=== PATIENT | female | born 1990 | race Caucasian/White ===

== ENCOUNTER → 2016-04-23 | Outpatient (CLI) | payer OTHER ==
[~2016-04-23] MED LIST: BCPILLS PO; BIOT1CAP8 PO; COEN100C7 PO; HYDR-5688 PO; MISCCAP80 PO; PRENTAB26 PO; VITAMIN D3 PO
[2016-04-23 14:10] LABS: PREG INTERNAL NEGATIVE QC NEG CLEAR BACKGROUND; PREG INTERNAL POSITIVE QC POS CONTROL LINE
[2016-04-25 03:42] LABS: CHLAMYDIA TRACH RNA*** NOT DETECTED (NOT DETECTED); GC (NEIS GONORRHOEAE)RNA** NOT DETECTED (NOT DETECTED)
== END | disposition home or self-care (01) ==
LOC: C.LABSPEC 17:51
PROVIDERS: ATTEND Obstetrics & Gynecology
DX: Z01.419 Encounter for gynecological examination (general) (routine) without abnormal findings (principal); R10.2 Pelvic and perineal pain

== ENCOUNTER → 2016-06-12 | Outpatient (CLI) | payer OTHER ==
[~2016-06-12] MED LIST changes: -HYDR-5688 PO
== END | disposition home or self-care (01) ==
LOC: C.LABPVFM 07:43
PROVIDERS: ATTEND Family Medicine
DX: E03.9 Hypothyroidism, unspecified (principal)

== ENCOUNTER → 2016-08-29 | Outpatient (CLI) | payer OTHER | END | disposition home or self-care (01) | LOC: C.LAB1850 13:43 | PROVIDERS: ATTEND Family Medicine | DX: E03.9 Hypothyroidism, unspecified (principal) ==

== ENCOUNTER → 2016-12-05 | Outpatient (CLI) | payer OTHER ==
[2016-12-05 15:50] LABS: THYROID STIMULATING HORMONE 0.906 uIu/ml (0.300-4.500)
== END | disposition home or self-care (01) ==
LOC: C.LAB1850 14:01
PROVIDERS: ATTEND Nurse Practitioner Psychiatric/Mental Health
DX: F33.1 Major depressive disorder, recurrent, moderate (principal)

== ENCOUNTER 2023-11-19 16:30 | Inpatient (IN) ==
[2023-11-19] MEDS: LACTATED RINGER'S 1,000 ML IV PRN (17:25)
[2023-11-19] MEDS: LABETALOL HCL 100 MG TAB PO SCH (17:27)
[2023-11-19] MEDS: LABETALOL HCL 100 MG TAB ONE (17:29)
[2023-11-19 17:35] LABS: Basophils # (auto) 0.06 K/uL (0.00-0.20); Basophils % (auto) 0.3 %; Eosinophils # (auto) 0.02 K/uL (0.00-0.50); Eosinophils % (auto) 0.1 %; Hemoglobin 12.8 g/dl (12.0-16.0); Immature Granulocytes # (auto) 0.12 K/uL (0.01-0.20); Immature Granulocytes % (auto) 0.6 %; Lymphocytes # (auto) 2.19 K/uL (1.20-3.40); Lymphocytes % (auto) 11.4 %; Mean Corpuscular Hemoglobin 31.4 pg (25.0-34.0); Mean Corpuscular Hgb Conc 34.6 g/dL (32.0-36.0); Mean Corpuscular Volume 90.7 fL (80.0-100.0); Mean Platelet Volume 10.6 fL (9.4-12.4); Monocytes # (auto) 1.57 K/uL (0.11-0.59); Monocytes % (auto) 8.2 %; Neutrophils % (auto) 79.4 %; Platelet Count 383 K/uL (130-400); RDW Coefficient of Variation 14.6 % (11.5-14.5); RDW Standard Deviation 47.2 fL (36.4-46.3); Red Blood Count 4.08 M/uL (4.20-5.40); White Blood Count 19.26 K/ul (4.8-10.8)
[2023-11-19 17:59] LABS: Alanine Aminotransferase 7 U/L (7-52); Albumin Globulin Ratio 0.9 (0.9-2); Albumin Level 3.3 gm/dl (3.4-5.0); Alkaline Phosphatase 188 U/L (34-104); Anion Gap 8 (3-11); Aspartate Aminotransferase 15 U/L (13-39); BUN Creatinine Ratio 19.7 (10-20); Bilirubin,Total 0.2 mg/dl (0.2-1.0); Blood Urea Nitrogen 14 mg/dl (6-23); Calcium 9.4 mg/dl (8.6-10.3); Carbon Dioxide 19 mmol/L (21-32); Chloride 107 mmol/L (98-107); Est GFR (African American) 130.6 ml/min; Est GFR (Non-African American) 112.7 ml/min; Globulin 3.7 gm/dl (2.5-4.0); Glucose 134 mg/dl (70-99(Fasting)); Potassium 4.2 mmol/L (3.5-5.1); Sodium 134 mmol/L (136-145)
[2023-11-19 18:06] LABS: Creatinine Urine Random 146.2 mg/dl; Protein Creatinine Ratio Urine 0.2 (0-0.2); Total Protein Urine Random 22.2 mg/dl (0-11.9)
[2023-11-19] MEDS ORDERED: OXYTOCIN 30 UNITS/NSS 30 UNITS/500 ML BAG IV PRN (18:36)
[2023-11-19] MEDS ORDERED: LIDOCAINE 1% LOCAL 20 ML VIAL INFIL PRN (18:36)
[2023-11-19 18:41] LABS: Amphetamines+Metham, Urine Pos (Neg); Barbiturates, Urine Neg (Neg); Benzodiazepine, Urine Neg (Neg); Cocaine, Urine Neg (Neg); Fentanyl, Urine Neg (Neg); MDMA (Ecstacy), Urine Neg (Neg); Marijuana, Urine Pos (Neg); Methadone, Urine Neg (Neg); Opiate, Urine Neg (Neg); Phencyclidine, Urine Neg (Neg)
--- NOTE | 2023-11-19 18:44 | Obstetrical Progress Note ---
Date of Service November 19, 2023 Assessment & Plan (1) PROM (premature rupture of membranes): Plan: 33yo at 40+weeks Poor PNC Hx of asthma Hx of gestational HTN- On labetalol last antihypertensive taken 3 days ago Suspected ROM at 05;00 Hrs FHr 'CAT1 Ctx 2-3mins VE; /-3 + meconium GBs culx done today Plan Admit start Pitocin augmentation Staring antibx for GBS Results & Data Vital Signs (Past 12 Hours) Vital Signs Temp Pulse Resp BP 11/19/23 18:09 100 H 142/94 H 11/19/23 17:38 36.8 C 98 H 22 151/103 H 11/19/23 17:34 98 H 151/103 H 11/19/23 17:24 100 H 151/100 H 11/19/23 17:13 36.8 C 103 H 22 138/91 11/19/23 17:03 101 H 146/108 H 11/19/23 16:53 105 H 140/102 H
[2023-11-19 19:31] LABS: Hematocrit (blood only) 37.8 % (37.0-47.0); Hemoglobin 12.5 g/dl (12.0-16.0); Mean Corpuscular Hemoglobin 30.8 pg (25.0-34.0); Mean Corpuscular Hgb Conc 33.1 g/dL (32.0-36.0); Mean Corpuscular Volume 93.1 fL (80.0-100.0); Mean Platelet Volume 10.6 fL (9.4-12.4); Platelet Count 377 K/uL (130-400); RDW Coefficient of Variation 14.8 % (11.5-14.5); RDW Standard Deviation 48.9 fL (36.4-46.3); Red Blood Count 4.06 M/uL (4.20-5.40); White Blood Count 18.54 K/ul (4.8-10.8)
[2023-11-19] MEDS: PENICILLIN GK 6 MU in DEXTROSE 5% 250 ML IV ONE (19:53)
[2023-11-19] MEDS ORDERED: diphenhydrAMINE 50 MG/ML VIAL IV PRN (20:15)
[2023-11-19] MEDS ORDERED: NALOXONE HCL 1 MG in SODIUM CHLORIDE 0.9% 1,000 ML IV PRN (20:15)
[2023-11-19] MEDS ORDERED: NALOXONE HCL 0.4 MG/1 ML VIAL/CARP IV PRN (20:15)
[2023-11-19] MEDS ORDERED: SODIUM CHLORIDE 0.9% PF INJ 10 ML VIAL EPI PRN (20:15)
[2023-11-19] MEDS ORDERED: NALBUPHINE HCL INJ 10 MG/ML AMP IV PRN (20:15)
[2023-11-19] MEDS ORDERED: fentaNYL citrate PF 100 MCG/2 ML VIAL EPI PRN (20:15)
[2023-11-19] MEDS ORDERED: LIDOCAINE 2% MPF LOCAL 5 ML VIAL EPI PRN (20:15)
[2023-11-19] MEDS ORDERED: BUPIVACAINE 0.25% PF 30 ML VIAL EPI PRN (20:15)
[2023-11-19] MEDS ORDERED: ROPIVACAINE 0.5% PF 5 MG/ML 20 ML VIAL EPI PRN (20:15)
[2023-11-19] MEDS ORDERED: ePHEDrine sulfate 50 MG/ML AMP IV PRN (20:15)
--- NOTE | 2023-11-19 20:15 | Anesthesiology Consultation ---
Date of Service November 19, 2023 Assessment & Plan (1) Encounter for pre-operative examination: Chart Review Chart Review: Patient NOT seen in Pre Admission Testing and Acceptable Risk for Labor Epidural Consults Requested none History Height/Weight Height: 5 ft 6 in Weight: 124.861 kg Allergies Allergy/AdvReac Type Severity Reaction Status Date / Time adhesive Allergy Unknown RASH, BUMPS Verified 09/23/21 03:08 latex Allergy Unknown RASH AND Verified 09/23/21 03:08 SWELLING AT AREA Influenza Virus Vaccines Allergy Nausea Verified 11/12/23 00:12 Medications Home Medications Medication Instructions Recorded Confirmed Last Taken fluoxetine 40 mg capsule 20 mg PO DAILY 03/14/19 11/19/23 11/18/23 07:00 dextroamphetamine-amphetamine ER See Rx Instructions .Route .COMPLEX 11/03/20 11/19/23 11/19/23 07:00 20 mg 24hr capsule,extend release galcanezumab-gnlm 120 mg/mL 0 mg subcut DIRECTED 09/23/21 11/19/23 08/30/23 07:00 subcutaneous pen injector (Emgality Pen) Medical Marijuana Card See Rx Instructions .Route .COMPLEX 04/12/23 11/12/23 11/19/23 08:00 1 cap PO QAM 04/12/23 11/19/23 11/13/23 08:00 albuterol sulfate 90 mcg/actuation 90 mcg inhalation UD PRN exercise 04/12/23 11/19/23 11/19/23 06:30 aerosol inhaler induced asthma labetalol 100 mg tablet 100 mg PO BID 11/19/23 11/19/23 11/17/23 22:30 Active Medications Generic Name Dose Route Start Last Admin Trade Name Freq PRN Reason Stop Dose Admin Lactated Ringer's 1,000 mls @ 125 mls/hr 11/19/23 17:09 11/19/23 19:58 Lr IV 12/19/23 17:08 125 mls/hr .Q8H PRN Infusion L&D Protocol Protocol Past Medical History Medical History Narcolepsy Anxiety Depression Mononucleosis Past Family History Family History Other Diabetes Stroke Past Surgical History Surgical History [place] teeth extracted H/O removal of cyst Social History Smoking Status: Current every day smoker Smoking cigarettes per day: 4 per day Hx Alcohol Use: No Hx Substance Use: No substance use type: marijuana Last Used Substance: Hours (ago) Last Used Substance Other:: 0800 Physical Exam Vital Signs Last Vital Signs Temp 98.2 F 11/19/23 17:38 Pulse 94 H 11/19/23 20:10 Resp 22 11/19/23 17:38 BP 142/95 H 11/19/23 20:10 Pulse Ox 97 11/19/23 20:09 Testing Laboratory Results 11/19/23 18:59 11/19/23 17:21
[2023-11-19] MEDS: fentANYL 2 MCG/ML BUPIVacaine 0.125%-NSS 100ML BAG ONE (20:44)
[2023-11-19] MEDS: BUPIVACAINE 0.25% PF 30 ML VIAL ONE (20:44)
[2023-11-19] MEDS: LIDOCAINE 2%/EPINEPHRINE 1:200,000 20 ML PF ONE (20:44)
[2023-11-19] MEDS: OXYTOCIN 30 UNITS/NSS 30 UNITS/500 ML BAG IV PRN (21:14)
[2023-11-19] MEDS: ePHEDrine sulfate 50 MG/ML AMP ONE (21:57)
[2023-11-19] MEDS: fentaNYL citrate PF 100 MCG/2 ML VIAL ONE (21:57)
[2023-11-19] MEDS: SODIUM CHLORIDE 0.9% PF INJ 10 ML VIAL EPI STA (21:58)
[2023-11-19] MEDS: BUPIVACAINE 0.25% PF 30 ML VIAL EPI STA (21:58)
[2023-11-19] MEDS: fentaNYL citrate PF 100 MCG/2 ML VIAL EPI STA (21:58)
[2023-11-19] MEDS: SODIUM CHLORIDE 0.9% PF INJ 10 ML VIAL ONE (21:58)
[2023-11-19] MEDS: LIDOCAINE 2%/EPINEPHRINE 1:200,000 20 ML PF EPI STA (21:58)
[2023-11-19] MEDS: PENICILLIN GK 3 MU in DEXTROSE 5% 100 ML IV PRN (23:36)
--- NOTE | 2023-11-19 23:53 | Obstetrical Progress Note ---
Date of Service November 19, 2023 Assessment & Plan (1) Obesity: Plan: Pt doing well Poor tracing due to elevated BMI IUPC and scalp placed Pit 4Mu FHR; CAT1 Ctx 2-4mins + meconium Admission and Anticipated Discharge Date Admission Date: November 19, 2023 Results & Data Vital Signs (Past 12 Hours) Vital Signs Temp Pulse Resp BP Pulse Ox 11/19/23 23:46 85 99 11/19/23 23:41 91 H 144/85 H 99 11/19/23 23:36 96 H 99 11/19/23 23:31 97 H 98 11/19/23 23:26 96 11/19/23 23:26 88 11/19/23 23:26 76 142/75 H 11/19/23 23:21 84 97 11/19/23 23:16 89 99 11/19/23 23:11 87 143/76 H 97 11/19/23 23:06 87 99 11/19/23 23:01 86 98 11/19/23 23:00 36.8 C 11/19/23 22:56 98 11/19/23 22:56 87 11/19/23 22:56 95 H 154/97 H 11/19/23 22:53 100 H 94 11/19/23 22:51 99 H 98 11/19/23 22:46 108 H 98 11/19/23 22:41 98 H 130/72 97 11/19/23 22:36 106 H 98 11/19/23 22:31 106 H 99 11/19/23 22:26 100 11/19/23 22:26 99 H 11/19/23 22:26 94 H 146/89 H 11/19/23 22:21 101 H 100 11/19/23 22:16 91 H 100 11/19/23 22:11 97 H 128/90 99 11/19/23 22:06 101 H 99 11/19/23 22:01 99 H 100 11/19/23 22:00 18 11/19/23 22:00 18 11/19/23 21:57 99 H 124/88 11/19/23 21:56 100 H 99 11/19/23 21:51 107 H 99 11/19/23 21:46 112 H 100 11/19/23 21:41 101 H 143/101 H 98 11/19/23 21:36 102 H 99 11/19/23 21:31 96 H 99 11/19/23 21:27 109 H 142/99 H 11/19/23 21:26 105 H 100 11/19/23 21:21 93 H 99 11/19/23 21:16 99 H 100 11/19/23 21:11 102 H 99 11/19/23 21:09 94 H 151/70 H 11/19/23 21:06 96 H 100 11/19/23 21:05 100 H 124/80 11/19/23 21:03 96 H 135/81 11/19/23 21:01 96 H 122/63 100 11/19/23 21:00 18 11/19/23 21:00 36.8 C 18 11/19/23 20:59 93 H 130/72 11/19/23 20:57 106 H 132/85 11/19/23 20:56 95 H 99 11/19/23 20:55 109 H 123/71 11/19/23 20:53 98 H 129/71 11/19/23 20:51 100 11/19/23 20:51 101 H 11/19/23 20:51 104 H 117/80 11/19/23 20:49 94 H 120/79 11/19/23 20:47 112 H 127/80 11/19/23 20:46 105 H 99 11/19/23 20:45 100 H 123/74 11/19/23 20:43 101 H 119/71 11/19/23 20:41 99 H 130/82 98 11/19/23 20:39 106 H 126/72 11/19/23 20:36 111 H 100 11/19/23 20:31 94 H 100 11/19/23 20:26 99 H 99 11/19/23 20:21 91 H 99 11/19/23 20:14 86 99 11/19/23 20:10 94 H 142/95 H 11/19/23 20:09 83 97 11/19/23 20:00 88 161/81 H 11/19/23 19:57 86 182/90 H 11/19/23 19:30 37.0 C 11/19/23 19:08 93 H 142/88 H 11/19/23 18:40 97 H 150/86 H 11/19/23 18:09 100 H 142/94 H 11/19/23 17:38 36.8 C 98 H 22 151/103 H 11/19/23 17:34 98 H 151/103 H 11/19/23 17:24 100 H 151/100 H 11/19/23 17:13 36.8 C 103 H 22 138/91 11/19/23 17:03 101 H 146/108 H 11/19/23 16:53 105 H 140/102 H
[2023-11-20] MEDS: fentANYL 2 MCG/ML BUPIVacaine 0.125%-NSS 100ML BAG EPI PRN (05:03)
--- OUTSIDE RECORDS SUMMARY | 2023-11-20 09:09 | External Medical Summary | Summary of Care ---
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 Name Role Phone Marcella Ames DO Primary Care Provider Reason for Visit * Reason Onset Date Comments Med Request 11/13/2023 Encounter Details Date Type Department Care Team (Late st Contact Info) Description 11/13/2023 Telephone Sleep Disorders [facility] [address] [place] [address] Services, Scheduling [address] [place] [address] Med Request Allergies Active Allergy Reactions Criticality Noted Date Comments Adhesive Tape Rash 03/14/2019 Influenza Virus Vaccine Fever 07/21/2020 Fever vomiting Dizzy Latex Edema Other,Rash Medium 05/20/2015 Powder Edema Other,Rash Medium 06/19/2017 The powder inside gloves documented as of this encounter (statuses as of 11/13/2023) Medications Medication Sig Dispensed Refills Start Date End Date Status Clindamycin Phosphate 1 % External GelIndications:Furun culosis,Folliculitis APPLY TWO TIMES DAILY TO NEW AND RESOLVING SPOTS IN UNDERARMS/ABDOMEN /GROIN AND ONCE DAILY TO PRONE AREAS INSTRUCTED 180 g 1 08/15/2021 Active Ventolin HFA 108 (90 Base) MCG/ACT Inhalation Aerosol Solution Inhale 2 Puffs by mouth every 4 hours as needed for Wheezing. 18 g 2 08/27/2022 Active 28-0.8 MG Oral Tablet Take by mouth. Active Emgality 120 MG/ML Subcutaneous Solution Auto-injector Inject 1 mL under the skin Every Month. 1 mL 3 05/06/2023 Active Aspirin 81 MG Oral Tablet ChewableIndications: Obesity during in first trimester,Chronic hypertension during Take 1 Tablet by mouth in the morning. 100 Tablet 3 06/04/2023 Active FLUoxetine HCl 20 MG Oral Capsule (PROzac)Indications: Depression complicating , antepartum Take 1 Capsule by mouth in the morning. 30 Capsule 2 06/13/2023 Active Labetalol HCl 100 MG Oral Tablet (Normodyne) Take 1 Tablet by mouth in the morning and 1 Tablet before bedtime. 60 Tablet 1 07/16/2023 Active Amphetamine-Dextroam phet ER 20 MG Oral Capsule Extended Release 24 Hour (Adderall XR) Take 2 Capsules by mouth daily first thing in the morning AND 1 Capsule daily at noon. Total 3 capsules per day. 90 Capsule 11/11/2023 Active documented as of this encounter (statuses as of 11/13/2023) Active Problems Problem Noted Date Diagnosed Date Chronic hypertension during 05/24/2023 Overview: Diagnosed with chronic hypertension in Reports she was started on Labetalol 100mg/day as of 04/12/2023 - after being sent to [facility] due to elevated BP, reports BP readings of 153/104 and 163/98. Has home BP cuff -Reviewed BP parameters, preeclampsia s/s, and when to call. BP Readings from Last 8 Encounters: 05/24/23 120/74 05/06/23 124/90 04/15/23 120/82 04/08/23 132/84 11/15/22 148/96 11/01/22 102/70 10/19/22 120/84 08/10/22 120/80 Baseline Preeclampsia Labs Lab Results Component Value Date/Time PLATELET AUTO - [facility] 355 04/08/2023 12:34 PM CREATININE - [facility] 0.8 04/08/2023 12:34 PM AST - [facility] 15 04/08/2023 12:34 PM ALT - [facility] 19 04/08/2023 12:34 PM PROTEIN/ CREATININE RATIO, URINE - [facility] 58 04/08/2023 01:34 PM 24 hour urine completed. Recommend bASA therapy (aspirin 81mg/day) starting now. Last Assessment & Plan: BP Readings from Last 5 Encounters: 08/01/23 110/64 07/29/23 128/82 06/04/23 110/80 05/24/23 120/74 05/06/23 124/90 HTN in , chronic 05/10/2023 , supervision, high-risk, first trimest er 04/11/2023 Last Assessment & Plan: Offered aneuploidy screening with NIPT. Benefits and limitations of testing reviewed; testing is not diagnostic and is limited in scope of conditions tested. NIPT is always covered by Medicaid plans. Charlette was told to call her insurance, but this is not needed as she has GHP family. NIPT and msAFP ordered today. Obesity during in first trimester 03/25 Overview: Pre-gravid BMI 44.41 (#275, 5'6") Patient plans to complete early 1 hour GCT at next OB appointment on 05/06. Baseline Preeclampsia Labs Lab Results Component Value Date/Time PLATELET AUTO - [facility] 355 04/08/2023 12:34 PM CREATININE - [facility] 0.8 04/08/2023 12:34 PM AST - [facility] 15 04/08/2023 12:34 PM ALT - [facility] 19 04/08/2023 12:34 PM PROTEIN/ CREATININE RATIO, URINE - [facility] 58 04/08/2023 01:34 PM Last Assessment & Plan: Abnormal 1'GTT with normal 3'GTT reviewed. Hypothyroid in , antepartum, first trim xiao 04/11/2023 Overview: Patient not currently taking medication for hypothyroidism. She states that she has levothyroxine at home from a previous prescription, but that she forgets to take it and has not taken it in some time. Most recent TSH was WNL on Saturday 04/08. Recommend ongoing follow-up with OB/PCP for management. TSH Results: Lab Results Component Value Date/Time TSH - [facility] 2.42 04/08/2023 12:34 PM TSH - [facility] 3.56 06/09/2021 11:54 AM TSH - [facility] 0.98 11/03/2020 12:48 PM TSH - [facility] 2.34 10/09/2019 08:45 AM TSH - [facility] 1.72 12/25/2018 10:31 AM TSH - [facility] 0.97 04/01/2018 04:21 PM Last Assessment & Plan: TSH Results: Lab Results Component Value Date/Time TSH - [facility] 1.61 06/18/2023 03:11 PM TSH - [facility] 2.42 04/08/2023 12:34 PM TSH - [facility] 3.56 06/09/2021 11:54 AM TSH - [facility] 2.34 10/09/2019 08:45 AM TSH - [facility] 1.72 12/25/2018 10:31 AM TSH - [facility] 0.97 04/01/2018 04:21 PM Asthma affecting in first trimester Overview: Asthma symptoms triggered by exercise and cold weather. Stable thus far in ; using albuterol inhaler regularly but not more than twice per week. She is aware to notify OB and/or PCP with any change in symptoms. Last Assessment & Plan: CONSIDERATIONS: Asthma symptoms may improve, worsen or remain unchanged in severity in . Asthma is generally managed the same in as in the non- patient, as asthma-control medications are considered safe in . If asthma is well-controlled with medications prior to , it is recommended to continue the same medication regimen during . A patient should seek medical care immediately if an asthma flare does not respond to therapy. Mild and well-controlled moderate asthma can be associated with excellent maternal and outcomes. Severe and poorly controlled asthma may be associated with increased morbidity and mortality. Asthma management includes monitoring of lung function with pulmonary function testing (when indicated), avoidance of triggers (such as tobacco smoke, mold, dust mite exposure, animal dander and cockroaches), and a step-care approach to pharmacologic therapy based on the severity of the patient's asthma. RECOMMENDATIONS: Inhaled corticosteroids are the mainstay of therapy for all patients except those with intermittent asthma. If patients are routinely requiring rescue inhaler (such as albuterol, Ventolin, ProAir, Atrovent, or Proventil) use more than twice weekly, we recommend adding a low-dose inhaled corticosteroid. [Pulmicort (budesonide) is preferred to use in .] If patients are routinely requiring rescue inhaler use daily, we recommend adding a combined low-dose inhaled corticosteroid/long-acting beta-agonist [such as Advair (fluticasone/salmeterol) or Symbicort (budesonide/formoterol)] or a medium dose inhaled corticosteroid. Patient should discuss these treatment options with her primary OB provider or PCP. Typically, patients do not need stress dose steroids as long as they continue their usual dose perioperatively (or during labor) and do not have primary renal failure or other problems with the pituitary axis. Medications such as prostaglandin F2a (including Hemabate), ergonovine, and indomethacin (in patients who are aspirin allergic) should be used with caution. Patients with moderate or severe persistent asthma should have Maternal- Medicine ultrasound for anatomy at 19-20 weeks. surveillance with growth ultrasounds and non-stress tests should be considered starting at 32 weeks. Vapes nicotine containing substance 04/11/2023 Overview: Currently vapes nicotine occasionally. Last Assessment & Plan: E-cigarettes are new to the smoking cessation market. There is currently no research about the safety of this product in . While e-cigarettes contain less nicotine than a traditional cigarette or other cessation products, the new e-cigarette does contain toxins of unknown effect. Until additional information is provided, E-cigarettes are not recommended for smoking cessation in . Anxiety during in first trimester, ant epartum 04/11/2023 Depression affecting pregnan cy in first trimester, antepartum 04/11/2023 Overview: Anxiety and depression have worsened since the start of . She states that she was able to stop Zoloft and Buspar when she started Adderall (for narcolepsy) and medical marijuana. Recently started Prozac 20 mg daily, and has continued taking Adderall on days that she has to work (typically Saturday through Saturday). Adderall is prescribed by sleep medicine. Patient expressed concern that if she stops this medication she would need to go on medical leave from work. Recommend further discussion with sleep medicine provider, but explained that she may continue Adderall during if she is unable to function without it and the benefit outweighs the risk. She has seen counselors and psychiatrists in the past, but is not currently following with anyone. She does have a [facility] psychology appointment scheduled in April. Reports history of persistent suicidal thoughts with no concrete plan. Denies current suicidal or homicidal ideation. She reports a strong support system including her fiance and a close friend/mother figure. Last Assessment & Plan: ANXIETY AND DEPRESSION CONSIDERATIONS: Untreated maternal anxiety and depression may be associated with an increased risk of multiple poor obstetrical outcomes including miscarriages, low weight, and delivery. Women with a history of anxiety or depression are at risk for recurrence both during and/or the period. Studies of first-trimester SSRI exposure do not demonstrate consistent data to support an increased risk for structural malformations. Anti-anxiety or depression medications have been associated with transient effects (withdrawal syndrome). RECOMMENDATIONS: Mental illness can and should be treated during when the benefits of treatment outweigh potential risks. Referral to behavioral health services as clinically indicated. Adderall (dextroamphetamine/amphetamine). Crosses Placenta. There are no adequate and well-controlled studies in women. Amphetamines should be used during only if the potential benefit justifies the potential risk to the fetus. Infants born to women taking amphetamines may have an increased risk of premature delivery, low weight, and may experience symptoms of withdrawal (dysphoria, agitation, and significant lassitude). Marijuana use during 04/11/2023 Overview: Utilizes medical marijuana several times per day for management of anxiety. Patient states that she has medical card and obtains marijuana from a dispensary. Last Assessment & Plan: CONSIDERATIONS: Chemicals found in marijuana, such as tetrahydrocannabinol (THC), are distributed to the brain and fat and cross the placenta. THC also appears in breast milk. In utero exposure is associated with short and long-term morbidity. A positive screen result is reported to [facility]. RECOMMENDATIONS: Abstain from marijuana use in and while ; avoid secondhand exposure. Discontinue use of marijuana for medicinal purposes in favor of an alternative therapy for which there are better -specific safety data. H/O migraine during 04/11/2023 Overview: Patient follows with Neurology for chronic migraines. Previously managed with monthly Emgality injections. Last Assessment & Plan: Considerations: The occurrence of migraine is modulated by fluctuations in estrogen levels. Most women (60 to 70 percent) with a history of migraine report improvement over the course of , approximately 5 percent describe worsening, and the remainder report no change Indications for neuroimaging and lumbar puncture are similar to those in non adults. Reviewed relief measures for headaches in include adequate hydration, small frequent meals, and Tylenol with caffeinated beverage as needed. Advise limiting Tylenol to no greater than 3000 mg per day. Recommendations: Recommend evaluation for Preeclampsia if greater than 20 weeks gestation. Recommend follow up with primary care provider or Neurology consult if headache symptoms worsen No contraindications for taking Fioricet as needed for severe headaches. Discussed that supplementation with magnesium 400 mg twice daily, co-q10 100 mg three times daily, and riboflavin (vitamin B2) 400 mg once daily may decrease the frequency of migraine headaches. These can be obtained over the counter at any pharmacy and are not contraindicated in . Avoid or monitor effects of possible headache triggers: Chocolate Cheese Deli meats Artificial sweeteners Elevated blood pressure read ing without diagnosis of hypertension 04/11/2023 Overview: History of occasional blood pressure elevations without formal diagnosis of hypertension. Patient has had one elevation thus far in : 132/92 on 04/08; repeat check was 132/84. Discussed diagnostic criteria for chronic hypertension, and explained that two or more elevations >140/90 prior to 20 weeks would support this diagnosis. Recommend bASA 81 mg daily beginning at 12-13 weeks due to the presence of multiple risk factors for preeclampsia. BP Readings from Last 5 Encounters: 04/08/23 132/84 11/15/22 148/96 11/01/22 102/70 10/19/22 120/84 08/10/22 120/80 Last Assessment & Plan: Recommend continued monitoring of blood pressures. Recommend bASA 81 mg daily beginning at 12-13 weeks. 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 Provider referral to Maternal Medicine 04/08/2023 Starla Scanlon RN 04/08/2023 Depression Discuss options with Provider Use of medication Referral to psychological services 04/08/2023 Starla Scanlon RN 04/08/2023 First Referral to [facility] 04/08/2023 Starla Scanlon RN 04/08/2023 Nausea and vomiting due to Nutrition Review 9 months booklet 04/08/2023 Starla Scanlon RN 04/08/2023 Need for baby supplies Distribute cribs letter Refer to local support centers 04/08/2023 Starla Scanlon RN 04/08/2023 Need for food assistance referred to [facility] and local [employer] 04/08/2023 Starla Scanlon RN 04/08/2023 Poor dental hygiene encourage routine brushing and flossing and referal to local dental clinic that accepts [place] insurances 04/08/2023 Starla Scanlon RN 04/08/2023 Smoking/tobacco abuse Smoking Education 04/08/2023 Starla Scanlon RN 04/08/2023 Problem Action Taken Date entered Entered by Date resolved Headache Increase fluids(non-caffeinated) Take 2 Tylenol according to the directions. Do not exceed 3 grams (3000mg) in 24 hours If persistent or severe, call your provider 05/06/2023 Jack Toth RN 05/06/23 Need for food assistance referred to [facility] and local food alaniz and [facility] resources reviewed 05/06/2023 Jack Toth RN 05/06/23 Unplanned 1st Offer [facility] 05/06/23 Jack Toth RN 05/06/23 Problem Action Taken Date entered Entered by Date resolved Lack of transportation refer to [facility] transportation application faxed 05/06/2023 Jack Toth RN 05/06/23 Problem Action Taken Date entered Entered by Date resolved Lack of housing 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 06/04/2023 Starla Scanlon RN 06/04/2023 Problem Action Taken Date entered Entered by Date resolved Education Reenforced 2nd trimester ed 07/29/2023 Jack Toth RN 07/29/23 Body mass index (BMI) of 40.0 to 44.9 in adult 0 10/02/2021 Overview: Per Obesity protocol - Per Obesity protocol - Per Obesity protocol - Per Obesity protocol - - Food insecurity 09/04/2021 Overview: Per [facility] Protocol 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 Patient reminded to complete early gestational diabetes screening. Last Assessment & Plan: CONSIDERATIONS: There is an increased incidence of spontaneous and gestational diabetes mellitus in women with PCOS. However, there is no increased incidence of poor outcomes. RECOMMENDATIONS: Due to the increased risk for diabetes in this population, recommend testing for undiagnosed type 2 diabetes mellitus with the first visit using the standard diagnostic criteria (2016 ADA Diabetes Management Guidelines). Acquired hypothyroidism 06/19/2017 Overview: St med age 22 Estimated Date of Delivery Comme nts Yes 11/17/2023 Based on last me nstrual period of 02/10/2023 (Exact Date) documented as of this encounter (statuses as of 11/13/2023) Resolved Problems Problem Noted Date Diagnosed Date Resolved Date Body mass index (BMI) of 45. 0 to 49.9 in adult 01/04/2020 10/05/2021 Overview: Per Obesity protocol - Per Obesity protocol - Per Obesity protocol - - Body mass index (BMI) of 50. 0 to 59.9 in adult 11/02/2019 01/07/2020 Overview: Per Obesity protocol - Per Obesity protocol - - Body mass index (BMI) of 45. 0 to 49.9 in adult 12/01/2018 11/05/2019 Overview: Per Obesity protocol - - Body mass index (BMI) of 40. 0 to 44.9 in adult 05/05/2018 12/05/2018 Overview: Per Obesity protocol #1 - HGSIL (high grade squamous i ntraepithelial lesion) on Pap smear of cervix 11/04/2017 0 Overview: 8/18-+ HPV Body mass index (BMI) of 45. 0 to 49.9 in adult 08/13/2017 05/08/2018 Overview: Per Obesity protocol #1 Body mass index (BMI) of 50. 0 to 59.9 in adult 07/02/2017 08/15/2017 Overview: Per Obesity protocol #1 documented as of this encounter (statuses as of 11/13/2023) Immunizations Name Administration Dates Next Due PPD 06/19/2017 Pneumococcal Polysaccharide PPV23 (Pneumovax) Seasonal Influenza Virus Vac cine, Unspecified Formulation 11/23/2019,11/23/2018 TDAP (age 10 and older)(Boostrix) 01/23/2018 documented as of this encounter Social History Tobacco Use Types Packs/Day Years Used Date Smoking Tobacco: Some Days Cigarettes Last attempted to quit: 06/10/2017 Smokeless Tobacco: Never Comments:social, only once i n a while Alcohol Use Standard Drinks/Week Comments Not Currently 0 (1 standard drink = 0.6 oz pure alcohol) wine and eggnog at time of conception; denies ongoing use in PHQ-2 Answer Date Recorded PHQ Adult Total Score 5 11/03/2020 Hunger Vital Sign Answer Date Recorded Within the past 12 months, y ou worried that your food would run out before you got the money to buy more. Often true 03/14/20 23 Within the past 12 months, t he food you bought just didn't last and you didn't have money to get more. Often true 03/14/2023 [place] Depression Scale Answer Date Recorded [place] Depression Scale Total 16 11/01/2023 The thought of harming myself has occurred to me . Never 11/01/2023 Childcare Answer Date Recorded Do you feel overwhelmed with taking care of a child, family member or friend? No 03/14/2023 Does your family need help f inding childcare? (Household - for ages 0-17 years) Not on file 03/14/2023 Clothing Answer Date Recorded Have you been unable to get clothing when it was really needed? Yes 03/14/2023 Is your family able to get c lothes or diapers when needed? (Household - for ages 0-17 years) Not on file 03/14/2023 Personal Safety Answer Date Recorded Do you feel unsafe or have concerns for your saf ety? No 03/14/2023 Do you have concerns for you r family's safety? (Household - for ages 0-17 years) Not on file 03/14/2023 Utilities Answer Date Recorded Do you have trouble paying y our heating, water, or electric bill? No 03/14/2023 Is your family able to pay t he heat, water, or electric bill? (Household - for ages 0-17 years) Not on file 03/14/2023 Does your family have access to good internet? (Household - for ages 0-17 years) Not on file 03/14/2023 Employment Status Answer Date Recorded Are you unemployed or without regular income? No 03/14/2023 Does the household have a re gular source of income? (Household - for ages 0-17 years) Not on file 03/14/2023 Social Connections Answer Date Recorded How often do you feel lonely or isolated from th ose around you? Rarely 03/14/2023 Financial Resource Strain Answer Date R ecorded Do you have any trouble payi ng for your medications, or do you think you might in the future? No 03/14/2023 Does your family have troubl e paying for medicine? (Household - for ages 0-17 years) Not on file 03/14/2023 Transportation Needs Answer Date Record ed READ ONLY Do you have troubl e getting a ride to medical visits or work? Never True 03/14/2023 Does your family have a hard time getting a ride to doctors visits? (Household - for ages 0-17 years) Not on file 03/14/2023 Has lack of transportation k ept you from medical appointments, meetings, work, or from getting things needed for daily living? Check all that apply. (Adult - for ages 18 years and over) Not on file 03/14/2023 Do you (or your family) have trouble finding or paying for a ride (transportation)? (Household - for ages 0-17 years) Not on file 03/14/2023 Housing Stability Answer Date Recorded Do you currently live in a s helter or have no steady place to sleep at night? No 03/14/2023 READ ONLY Do you think you a re at risk of becoming homeless? No 03/14/2023 Does your family worry about paying for your home or becoming homeless? (Household - for ages 0-17 years) Not on file 1 05/15/2022 Are you homeless or worried that you might be in the future? (Adult - for ages 18 years and over) Not on file Are you (or your family) cee eless or worried that you might be in the future? (Household - for ages 0-17 years) Not on file Food Insecurity Answer Date Recorded Do you need food for this week? No 03/14/2023 Are you able to get enough f ood for your family? (Household - for ages 0-17 years) Not on file 03/14/2023 Does your family need food t his week? (Household - for ages 0-17 years) Not on file 03/14/2023 Do you always have enough fo od for your family? (Household - for ages 0-17 years) Not on file 03/14/2023 Estimated Date of Delivery Comme nts Yes 11/17/2023 Based on last me nstrual period of 02/10/2023 (Exact Date) Sex and Gender Information Value Date Recorded Sex Assigned at Female 11/26/2018 2:53 PM EDT Gender Identity Female 11/26/2018 2:53 PM EDT Sexual Orientation Straight 11/26/2018 2: 53 PM EDT Job Start Date Occupation Industry Not on file Not on file Not on file documented as of this encounter Miscellaneous Notes * Telephone Encounter - Julieth Venegas OSA - 11/13/2023 10:20 AM EDT Pt is needing a refill on her Amphetamine and the pharmacy is saying they need more information before they can fill this please touch base with Pharmacy and pt. documented in this encounter Plan of Treatment Upcoming Encounters Date Type Department Care Team (Late st Contact Info) Description 12/03/2023 1:00 PM EDT Telemedicine [facility] [place] [address] [place] [address] Shonda Islas [facility] [address], [place] [id number] 02/04/2024 1:00 PM EST Office Visit [facility] [address] [place] [phone] Velia Nelson CRNP [address] [place] [id number] Health Maintenance Due Date Last Done Comments DISCUSS TOBACCO CESSATION (REFER TO SMARTSET #1754) 1991 Hepatitis B Vaccine (1 of 3 - 19+ 3-dose series) 09/07/2010 Pneumococcal Vaccine: Pediatrics (0 to 5 Years) and At-Risk Patients (6 to 64 Years) (2 of 2 - PCV) 01/23/2019 01/23/2018 Depression Monitoring 11/03/2021 11/03/2020 COVID-19 Vaccine (1 - 2022-24 season) 2022 *SPIROMETRY ONCE FOR ASTHMA-ADULT 04/13/2023 Influenza Vaccine (FLU shot) (#1) 2023 11/23/2019, 11/23/2018, 12/25/2016 GFR 04/12/2024 04/12/2023, 03/25, 06/09/2021, Additional history exists Pap Smear 04/08/2026 04/08/2023, 05/2021, 10/24/2020, Additional history exists DTaP,Tdap,and Td Vaccines (2 - Td or Tdap) 01/24/2028 01/23/2018 Cervical Cancer Screening 04/08/2028 HPV/Co-Test 04/08/2028 04/08/2023 HPV (Gardasil) Vaccine Aged Out No lo nger eligible based on patient's age to complete this topic MENINGOCOCCAL (MENACTRA/MENVEO) Aged Out No longer eligible based on patient's age to complete this topic documented as of this encounter Medical Devices Not on filedocumented as of this encounter Care Teams Naphthalene Operator Helper Relationship Specialty Start Date End Date Marcella Ames DO [address] [place] [address] PCP - General Family Medicine 10/24/20 documented as of this encounter
--- OUTSIDE RECORDS SUMMARY | 2023-11-20 09:09 | External Medical Summary | Summary of Care ---
Author Name Unknown Organization [facility] Address [address] [place] [address] Phone [phone] Care Team Providers Care Observer Gravity Prospecting Name Role Phone Marcella Ames DO Primary Care Provider Reason for Visit * Reason Onset Date Comments Med Request 11/13/2023 Encounter Details Date Type Department Care Team (Late st Contact Info) Description 11/13/2023 Telephone Sleep Disorders Ctr [facility] [address] [place] [address] Services, Scheduling [address] [place] [address] Med Request Allergies Active Allergy Reactions Criticality [...] of 04/12/2023 - after being sent to [facility] due to elevated BP, reports BP readings [...] following with anyone. She does have a [facility] psychology appointment scheduled in April. Reports [...] Discuss importance of proper diet Referral to field automobile adjuster Provider referral to Maternal Medicine 04/08/2023 Starla [...] 04/08/2023 Need for food assistance referred to [facility] and local [employer] 04/08/2023 Starla Scanlon RN 04/08/2023 Poor dental [...] 05/06/23 Need for food assistance referred to [facility] and local food [employer] and [facility] resources reviewed 05/06/2023 Jack Toth RN 05/06/23 Unplanned 1st Offer Nurse Family [facility] 05/06/23 Jack Toth RN 05/06/23 Problem Action Taken Date entered Entered by Date resolved Lack of transportation refer to count includes the [facility] transportation application faxed 05/06/2023 Jack Toth RN 05/06/23 Problem Action Taken Date entered Entered by Date resolved Lack of housing Care Management Reconstructive Surgeon 06/04/2023 Starla Scanlon RN 06/04/2023 Problem Action [...] money to get more. Often true 03/14/2023 [place] Depression Scale Answer Date Recorded [place] Depression Scale Total 16 11/01/2023 The thought [...] encounter Miscellaneous Notes * Telephone Encounter - Maci Cisse LPN - 11/13/2023 1:08 PM EDT I spoke with the pharmacist at [facility], and answered their questions. * Telephone Encounter - Julieth Venegas OSA [...] Contact Info) Description 12/03/2023 1:[address] [facility] [address] [place] [address] Shonda Islas [facility] [address] [place] [address] 02/04/2024 1:00 PM EST Office Visit Sleep Disorders Ctr [facility] [address] [facility] [place] [address] Velia Nelson CRNP [address] [facility] [place] [address] Health Maintenance Due Date Last Done Comments DISCUSS TOBACCO CESSATION (REFER TO SMARTSET #4084) 1991 Hepatitis B Vaccine (1 of 3 - 19+ 3-dose series) 09/07/2010 Pneumococcal Vaccine: Pediatrics (0 to 5 Years) and At-Risk Patients (6 to 64 Years) (2 of 2 - PCV) 01/23/2019 01/23/2018 Depression Monitoring 11/03/2021 11/03/2020 COVID-19 Vaccine ( - 2022-24 season) 2022 *SPIROMETRY ONCE FOR ASTHMA-ADULT 04/13/2023 Influenza Vaccine (FLU shot) (#1) 2023 11/23/2019, 11/23/2018, 12/25/2016 GFR 04/12/2024 04/12/2023, 03/25, 06/09/2021, Additional history exists Pap Smear 04/08/2026 04/08/2023, 0805/2021, 10/24/2020, Additional history exists DTaP,Tdap,and Td Vaccines [...] filedocumented as of this encounter Care Teams Observer Gravity Prospecting Relationship Specialty Start Date End Date Marcella Ames DO [address] [facility] [place] [address] PCP - General Family Medicine 10/24/20 documented as of this encounter
--- OUTSIDE RECORDS SUMMARY | 2023-11-20 09:10 | External Medical Summary | Summary of Care ---
Author Name Unknown Organization [facility] Address [address] [place] [address] Phone [phone] Care Team Providers Care Radar Engineer Name Role Phone Hui Marcella Jeniffer DO Primary Care Provider Reason for Visit * Reason Onset Date Comments Medication Problem 11/11/2023 AMPHETAMINE S ALTS ER 20 MG CAP Encounter Details Date Type Department Care Team ([facility] st Contact Info) Description 11/11/2023 Telephone Sleep Disorders Ctr [facility] [address] [place] [phone] Ayala Artis DO [address] [place] [address] Medication Problem (AMPHETAMINE SALTS ER 2... Allergies Active Allergy Reactions Criticality Noted Date Comments Adhesive Tape Rash 03/14/2019 Influenza Virus Vaccine Fever 07/21/2020 Fever vomiting Dizzy Latex Edema Other,Rash Medium 05/20/2015 Powder Edema Other,Rash Medium 06/19/2017 The powder inside gloves documented as of this encounter (statuses as of 11/11/2023) Medications Medication Sig Dispensed Refills Start Date End Date Status Clindamycin Phosphate 1 % External GelIndications:Fu runculosis,Follic ulitis APPLY TWO TIMES DAILY TO NEW AND RESOLVING SPOTS IN UNDERARMS/ABDOM EN/GROIN AND ONCE DAILY TO PRONE AREAS INSTRUCTED [...] 05/06/2023 Active Aspirin 81 MG Oral Tablet ChewableIndicatio ns:Obesity during in first trimester,Chronic hypertension during Take 1 Tablet by mouth in the morning. 100 Tablet 3 06/04/2023 Active FLUoxetine HCl 20 MG Oral Capsule (PROzac)Indicatio ns:Depression complicating , antepartum Take 1 Capsule by mouth in the morning. 30 Capsule 2 06/13/2023 Active Labetalol HCl 100 MG Oral Tablet (Normodyne) Take 1 Tablet by mouth in the morning and 1 Tablet before bedtime. 60 Tablet 1 07/16/2023 Active Amphetamine-Dextr oamphet ER 20 MG Oral Capsule Extended Release 24 Hour (Adderall XR) Take 2 Capsules by mouth daily first thing in the morning AND 1 Capsule daily at noon. Total 3 capsules per day. 90 Capsule 11/11/2023 Discontinued documented as of this encounter (statuses as of 11/11/2023) Active Problems Problem Noted Date Diagnosed Date Chronic hypertension during 05/24/2023 Overview: Diagnosed with chronic hypertension in Reports she was started on Labetalol 100mg/day as of 04/12/2023 - after being sent to [facility] due to elevated BP, reports BP readings [...] time. Most recent TSH was WNL on Brendon 1/15. Recommend ongoing follow-up with OB/PCP for management. [...] following with anyone. [facility] in April. Reports history [...] Discuss importance of proper diet Referral to tableau administrator Provider referral to Maternal Medicine 04/08/2023 Starla [...] Refer to local support centers 04/08/2023 Starla Sacnlon RN 04/08/2023 Need for food assistance referred to [facility] and local [employer] 04/08/2023 Starla Scanlon RN 04/08/2023 Poor dental [...] 05/06/23 Need for food assistance referred to [facility] and local food [employer] and [facility] resources reviewed 05/06/2023 Jack Toth RN 05/06/23 Unplanned 1st Offer Nurse Family Partnership 05/06/23 Jack Toth RN 05/06/23 Problem Action Taken Date entered Entered by Date resolved Lack of transportation refer to [facility] transportation application faxed 05/06/2023 Jack Toth RN 05/06/23 Problem Action Taken Date entered Entered by Date resolved Lack of housing Care Management Direct Mail Clerk 06/04/2023 Starla Scanlon RN 06/04/2023 Problem Action [...] as of this encounter (statuses as of 11/11/2023) Resolved Problems Problem Noted Date Diagnosed Date [...] as of this encounter (statuses as of 11/11/2023) Immunizations Name Administration Dates Next Due PPD [...] money to get more. Often true 03/14/2023 [place] Depression Scale Answer Date Recorded [place] Depression Scale Total 16 11/01/2023 The thought [...] encounter Miscellaneous Notes * Telephone Encounter - Akanksha Carlos LPN - 11/11/2023 9:10 AM EDT [facility] [place]: Faxed response requested: PRODUCT BACKORDERED/UNAVAILABLE AMPHETAMINE SALTS ER 20 MG CAP QTY: 90 PHARMACY COMMENTS: PRODUCT BACKORDERED/UNAVAILABLE: MEDICATION ON BACKORDER, ALL STRENGTHS ON BACKORDER FOR US, PLEASE CONSIDER ALTERNATE PHARMACY AT THIS POINT. documented in this encounter Plan of Treatment Upcoming Encounters Date Type Department Care Team (Late st Contact Info) Description 12/03/2023 1:00 PM EDT Telemedicine [facility] [place] [address] [place] [address] Shonda [facility]las [facility] [address] [place] [address] 02/04/2024 1:00 PM EST Office Visit Sleep Disorders Ctr [facility] [address] [facility] [place] [phone] Velia Nelson CRNP [address] [facility] [place] [id number] Health Maintenance Due Date Last Done Comments DISCUSS TOBACCO CESSATION (REFER TO SMARTSET #5347) 1991 Hepatitis B Vaccine (1 of 3 [...] Additional history exists Pap Smear 04/08/2026 04/08/2023, 08/0 05/2021, 10/24/2020, Additional history exists DTaP,Tdap,and Td [...] filedocumented as of this encounter Care Teams Radar Engineer Relationship Specialty Start Date End Date Marcella Ames DO [address] [place] [facility] [place] [address] PCP - General Family Medicine 10/24/20 documented as of this encounter
[2023-11-20] MEDS: DEXTROAMPHETAMINE/AMPHETAMINE ER 20 MG CAP PO SCH (11:12)
[2023-11-20] MEDS ORDERED: NURSING L&D Epidural Breakthrough Pain Update ONE (13:11)
[2023-11-20] MEDS ORDERED: fentaNYL citrate PF 100 MCG/2 ML VIAL ONE ×2 (13:39→19:07)
[2023-11-20] MEDS ORDERED: LIDOCAINE 2% MPF LOCAL 5 ML VIAL ONE (13:39)
[2023-11-20] MEDS ORDERED: ROPIVACAINE 0.5% 5 MG/ML 30 ML VIAL ONE (13:39)
--- NOTE | 2023-11-20 13:48 | Anesthesia Procedure Note ---
Date of Service November 20, 2023 Anesthesia Epidural Re-Dose Vital Signs Temp Pulse Resp BP Pulse Ox 36.7 C 91 H 16 150/93 H 98 11/20/23 13:30 11/20/23 13:46 11/20/23 13:30 11/20/23 13:44 11/20/23 13:46 Notes Pain Intensity: 7 Dilatation (cm): 5.5 Effacement (%): 80 Called by nursing to evaluate epidural as the patient is having increased pain. The epidural was re-dosed with the following medications (all medications via epidural route) after negative aspiration of the epidural catheter for CSF/HEME. 2ml 2% lidocaine with epi, 3mL ropivacaine 0.5% and 100 mcg fetanyl via epidural After Epidural Re-Dose Mental Status: alert / awake / arousable Pain: improving with treatment Airway Patency, RR, SpO2: stable & adequate BP & HR: stable & adequate
[2023-11-20] MEDS: LACTATED RINGER'S 1,000 ML IV PRN (14:05)
[2023-11-20] MEDS: fentaNYL citrate PF 100 MCG/2 ML VIAL ONE (15:12)
[2023-11-20] MEDS: BUPIVACAINE 0.25% PF 30 ML VIAL ONE (15:13)
[2023-11-20] MEDS: LIDOCAINE 2%/EPINEPHRINE 1:200,000 20 ML PF ONE (15:13)
[2023-11-20] MEDS: ePHEDrine sulfate 50 MG/ML AMP ONE (15:16)
[2023-11-20] MEDS: fentANYL 2 MCG/ML BUPIVacaine 0.125%-NSS 100ML BAG ONE (15:16)
[2023-11-20] MEDS: SODIUM CHLORIDE 0.9% PF INJ 10 ML VIAL ONE (15:16)
--- NOTE | 2023-11-20 15:22 | Communication Note ---
Date of Service: November 20, 2023 pt did not get relief with a redose. i decided to replace the epidural. upon sitting up the epidural was at the 10CM josé miguel and most likely out of the epidural space. removed tip intact. there is bruising around the epidural site which patient says is normal for her. she noted a bruise under the iv site. sterile prep, drape/gloves/mask. l3-l4 interspace. 1% lido infiltrated. 18 gauge touey needle advanced to BERNARDO at 8cm to air. easy catheter thread. test dose with 2% lido with epi 4mL. negative IV/IT. secured at 15 cm at skin. dosed with 100 mcg of fentanyl and 5mL of 0.25% Sensorcaine in divided doses. pt reports relief of contraction pain vss see emr
[2023-11-20] MEDS ORDERED: Nursing to Pharmacy Communication SCH ×2 (16:00→22:15)
[2023-11-20] MEDS ORDERED: LACTATED RINGER'S 1,000 ML IV SCH ×3 (18:45→21:30)
--- NOTE | 2023-11-20 19:03 | History & Physical Report ---
Date of Service November 20, 2023 Assessment & Plan (1) Arrested labor: Plan: section (2) Meconium in amniotic fluid: Plan: section Plan section Admission and Anticipated Discharge Date Admission Date: November 19, 2023 History of Present Illness Chief Complaint: Arrest of labor secondary to cephalopelvic disproportion. Prolonged rupture of membranes. Intrauterine 40 weeks 3 days gestation. Hypertension. Primary Care Provider: Marcella Ames DO Patient is a 33-year-old 2 para 0. 1 spontaneous first trimester AB 2017. General health is complicated by polycystic ovarian syndrome narcolepsy elevated blood pressure chronic migraines. Last menstrual period for this was 02/10/2023. She has been well dated with a first trimester ultrasound. Her due date is 11/17/2023. She was being seen at [facility] maternal- medicine. Last ultrasound there was then August 2023. Showed a increase in size specifically in the head. She started having contractions on 11/19/2023 at about 3 AM in the morning. At about 6 AM she had spontaneous rupture of membranes with gush of fluid. When she arrived at the hospital. Membrane rupture was confirmed. She also had meconium stained amniotic fluid. She was started on IV Pitocin. An intrauterine pressure monitor was placed. Scalp monitor was placed. She received epidural for pain control. Pitocin was used to start regular frequent contractions. Despite these measures. She had arrest of labor at about 5 to 6 cm. For approximately 8 hours. During that time cervix did not change in dilatation. And station was a -1. After prolonged arrest of labor despite using Pitocin. Diagnosis of cephalopelvic disproportion was made and patient was scheduled for section. Allergies Allergy/AdvReac Type Severity Reaction Status Date / Time adhesive Allergy Unknown RASH, BUMPS Verified 09/23/21 03:08 latex Allergy Unknown RASH AND Verified 09/23/21 03:08 SWELLING AT AREA Influenza Virus Vaccines Allergy Nausea Verified 11/12/23 00:12 Home Medications Medication Instructions Recorded Confirmed Type fluoxetine 40 mg capsule 20 mg PO DAILY 03/14/19 11/19/23 History dextroamphetamine-amphetamine ER See Rx Instructions .Route .COMPLEX 11/03/20 11/19/23 History 20 mg 24hr capsule,extend release galcanezumab-gnlm 120 mg/mL 0 mg subcut DIRECTED 09/23/21 11/19/23 History subcutaneous pen injector (Emgality Pen) Medical Marijuana Card See Rx Instructions .Route .COMPLEX 04/12/23 11/12/23 H istory 1 cap PO QAM 04/12/23 11/19/23 History albuterol sulfate 90 mcg/actuation 90 mcg inhalation UD PRN exercise 04/12/23 11/19/23 History aerosol inhaler induced asthma labetalol 100 mg tablet 100 mg PO BID 11/19/23 11/19/23 History Past Med/Surg History Problem List (Updated 11/20/23 @ 19:01 by Franc Grace MD) Meconium in amniotic fluid Arrested labor Obesity Encounter for pre-operative examination PROM (premature rupture of membranes) No significant past surgical history Vertigo (Acute) Thyroid disorder (Chronic) PCOS (polycystic ovarian syndrome) (Chronic) Medical History Narcolepsy Anxiety Depression Mononucleosis Surgical History Skippers teeth extracted H/O removal of cyst Family History Other Diabetes Stroke Social History Smoking Status: Current every day smoker Tobacco Type: Cigarettes Cigarettes Per Day: 4 per day; Second Hand Exposure: Yes; Hx Alcohol Use: No Hx Substance Use: No Preferred Language: Tanzanian Disc Recordist Required: No Beliefs That Will Affect Care: None marital status: Single Current Living Situation: Significant Other Current Living Situation Comment: lives with fob Other Information That Helps Us Care for You: No Feels Safe at Home: Yes Assistive Devices: None Review of Systems Review of Systems: Patient has history of chronic migraines. Hypertension for which she takes labetalol 100 mg twice a day. Patient is 1/4 pack a day smoker. Physical Exam Physical Exam: Patient is a 33-year-old female alert oriented x 3 cooperative no acute distress. Heart had a regular rhythm S1 and S2 are normal. Lungs were clear to auscultation and percussion. Neck was supple trachea midline there was no adenopathy. There was no CVA tenderness. Abdomen revealed a abdomen consistent with a large fetus. Pelvic exam vertex presentation -1 station 6 cm 100% effaced. No calf tenderness. Results & Data Results & Data Vital Signs (Past 12 Hours) Vital Signs Temp Pulse Resp BP Pulse Ox 11/20/23 18:46 102 H 99 11/20/23 18:41 94 H 99 11/20/23 18:36 95 H 99 11/20/23 18:31 101 H 100 11/20/23 18:28 100 H 137/86 11/20/23 18:26 85 98 11/20/23 18:21 98 H 99 11/20/23 18:16 93 H 99 11/20/23 18:13 96 H 11/20/23 18:13 106 H 136/82 86 L 11/20/23 18:11 98 H 92 11/20/23 18:07 101 H 89 L 11/20/23 18:06 101 H 98 11/20/23 18:01 100 H 96 11/20/23 18:00 16 11/20/23 18:00 36.8 C 16 11/20/23 17:59 103 H 123/95 86 L 11/20/23 17:56 105 H 92 11/20/23 17:51 101 H 96 11/20/23 17:46 71 L 11/20/23 17:46 110 H 11/20/23 17:46 105 H 85 L 11/20/23 17:43 98 H 121/84 11/20/23 17:41 108 H 94 11/20/23 17:36 97 11/20/23 17:36 93 H 11/20/23 17:36 90 129/71 11/20/23 17:33 108 H 90 11/20/23 17:31 109 H 99 11/20/23 17:26 103 H 94 11/20/23 17:21 99 H 96 11/20/23 17:16 107 H 98 11/20/23 17:13 105 H 120/59 L 11/20/23 17:11 103 H 95 11/20/23 17:06 99 H 96 11/20/23 17:01 87 94 11/20/23 17:00 16 11/20/23 17:00 36.7 C 16 11/20/23 16:59 87 127/79 11/20/23 16:56 87 94 11/20/23 16:51 89 94 11/20/23 16:46 90 95 11/20/23 16:43 91 H 124/81 11/20/23 16:41 91 H 94 11/20/23 16:36 88 93 11/20/23 16:31 86 95 11/20/23 16:30 16 11/20/23 16:30 36.8 C 16 11/20/23 16:28 92 H 117/67 11/20/23 16:26 94 H 94 11/20/23 16:21 96 H 93 11/20/23 16:16 95 H 92 11/20/23 16:14 97 H 119/80 91 11/20/23 16:11 95 H 92 11/20/23 16:06 96 H 93 11/20/23 16:01 97 H 92 11/20/23 16:00 16 11/20/23 16:00 16 11/20/23 15:58 96 H 112/67 11/20/23 15:56 98 H 93 11/20/23 15:52 104 H 91 11/20/23 15:51 94 H 93 11/20/23 15:47 98 H 90 11/20/23 15:46 96 H 92 11/20/23 15:43 93 H 117/78 11/20/23 15:41 92 11/20/23 15:41 93 H 11/20/23 15:41 98 H 91 11/20/23 15:36 99 H 92 11/20/23 15:35 103 H 91 11/20/23 15:31 111 H 96 11/20/23 15:30 16 11/20/23 15:30 36.4 C L 16 11/20/23 15:27 106 H 131/80 11/20/23 15:26 103 H 97 11/20/23 15:25 111 H 86 L 11/20/23 15:21 104 H 95 11/20/23 15:16 105 H 95 11/20/23 15:12 85 126/83 11/20/23 15:11 97 H 95 11/20/23 15:08 95 H 131/86 11/20/23 15:06 92 H 98 11/20/23 15:02 90 176/110 H 11/20/23 15:01 90 96 11/20/23 15:00 22 11/20/23 15:00 22 11/20/23 14:58 95 H 85 L 11/20/23 14:56 90 96 11/20/23 14:52 81 190/81 H 11/20/23 14:51 79 94 11/20/23 14:47 85 175/91 H 11/20/23 14:46 87 97 11/20/23 14:43 86 149/88 H 11/20/23 14:41 85 96 11/20/23 14:36 87 157/83 H 96 11/20/23 14:31 81 157/75 H 95 11/20/23 14:30 16 11/20/23 14:30 16 11/20/23 14:26 90 155/72 H 98 11/20/23 14:22 82 148/70 H 11/20/23 14:21 83 96 11/20/23 14:18 83 159/104 H 11/20/23 14:16 82 98 11/20/23 14:12 83 179/107 H 11/20/23 14:11 90 97 11/20/23 14:06 80 169/93 H 96 11/20/23 14:04 79 176/95 H 11/20/23 14:02 86 90 11/20/23 14:01 86 97 11/20/23 14:00 16 11/20/23 14:00 36.8 C 16 11/20/23 13:57 88 173/106 H 11/20/23 13:56 90 98 11/20/23 13:52 82 147/106 H 11/20/23 13:51 86 139/101 H 97 11/20/23 13:46 91 H 98 11/20/23 13:44 87 150/93 H 11/20/23 13:41 91 H 161/95 H 98 11/20/23 13:36 91 H 95 11/20/23 13:31 83 97 11/20/23 13:30 16 11/20/23 13:30 36.7 C 16 11/20/23 13:26 81 145/92 H 96 11/20/23 13:21 91 H 97 11/20/23 13:16 88 96 11/20/23 13:15 80 151/89 H 11/20/23 13:11 86 159/96 H 95 11/20/23 13:06 87 96 11/20/23 13:01 91 H 96 11/20/23 13:00 16 11/20/23 13:00 16 11/20/23 12:56 102 H 112/64 97 11/20/23 12:51 89 97 11/20/23 12:46 89 96 11/20/23 12:42 95 H 143/90 H 11/20/23 12:41 89 97 11/20/23 12:36 88 97 11/20/23 12:31 89 97 11/20/23 12:30 16 11/20/23 12:30 16 11/20/23 12:27 97 H 132/85 11/20/23 12:26 98 H 97 11/20/23 12:21 95 H 97 11/20/23 12:16 91 H 98 11/20/23 12:11 89 133/86 96 11/20/23 12:06 93 H 97 11/20/23 12:01 97 H 97 11/20/23 12:00 36.8 C 93 H 18 135/89 11/20/23 11:56 97 H 97 11/20/23 11:51 104 H 97 11/20/23 11:46 87 96 11/20/23 11:41 88 139/84 97 11/20/23 11:36 90 97 11/20/23 11:31 88 97 11/20/23 11:30 16 11/20/23 11:30 16 11/20/23 11:26 97 11/20/23 11:26 87 11/20/23 11:26 86 139/77 11/20/23 11:21 91 H 96 11/20/23 11:16 90 97 11/20/23 11:12 96 H 146/83 H 11/20/23 11:11 98 H 97 11/20/23 11:06 93 H 96 11/20/23 11:01 94 H 97 11/20/23 11:00 16 11/20/23 11:00 16 11/20/23 10:57 88 133/73 11/20/23 10:56 89 98 11/20/23 10:51 90 97 11/20/23 10:46 93 H 96 11/20/23 10:41 94 H 143/79 H 98 11/20/23 10:36 99 H 98 11/20/23 10:31 99 H 97 11/20/23 10:30 16 11/20/23 10:30 16 11/20/23 10:26 100 H 98 11/20/23 10:22 36.7 C 11/20/23 10:21 102 H 97 11/20/23 10:16 100 H 97 11/20/23 10:12 100 H 134/84 11/20/23 10:11 99 H 96 11/20/23 10:06 97 H 97 11/20/23 10:01 102 H 96 11/20/23 10:00 16 11/20/23 10:00 16 11/20/23 09:56 96 H 134/80 97 11/20/23 09:51 101 H 96 11/20/23 09:46 101 H 96 11/20/23 09:41 95 11/20/23 09:41 97 H 11/20/23 09:41 98 H 128/81 11/20/23 09:36 102 H 98 11/20/23 09:31 99 H 96 11/20/23 09:30 16 11/20/23 09:30 16 11/20/23 09:26 97 H 129/72 96 11/20/23 09:21 93 H 96 11/20/23 09:16 97 H 97 11/20/23 09:11 96 H 136/90 96 11/20/23 09:06 105 H 97 11/20/23 09:01 114 H 98 11/20/23 09:00 16 11/20/23 09:00 36.8 C 16 11/20/23 08:56 100 H 155/76 H 96 11/20/23 08:51 98 H 96 11/20/23 08:46 98 H 96 11/20/23 08:41 99 H 149/85 H 96 11/20/23 08:36 102 H 98 11/20/23 08:31 102 H 98 11/20/23 08:30 16 11/20/23 08:30 16 11/20/23 08:26 107 H 130/74 97 11/20/23 08:21 100 H 99 11/20/23 08:16 96 H 97 11/20/23 08:11 95 11/20/23 08:11 90 11/20/23 08:11 81 136/77 11/20/23 08:06 91 H 95 11/20/23 08:01 92 H 96 11/20/23 07:56 96 11/20/23 07:56 92 H 11/20/23 07:56 98 H 137/79 11/20/23 07:51 88 96 11/20/23 07:46 93 H 97 11/20/23 07:42 110 H 132/80 11/20/23 07:41 91 H 96 11/20/23 07:36 89 95 11/20/23 07:31 94 H 95 11/20/23 07:26 95 11/20/23 07:26 86 11/20/23 07:26 86 144/86 H 11/20/23 07:21 87 98 11/20/23 07:16 91 H 96 11/20/23 07:12 83 135/80 11/20/23 07:11 98 H 98 11/20/23 07:06 99 H 99 11/20/23 07:05 36.7 C 16 11/20/23 07:05 36.7 C 11/20/23 07:01 86 95 11/20/23 07:00 16 11/20/23 07:00 16 11/20/23 06:58 86 138/85 11/20/23 06:56 102 H 97 11/20/23 06:51 92 H 98 Diagnostic Findings Prolonged rupture of membranes. Hypertension. Meconium stained amniotic fluid. Arrest of labor secondary to cephalopelvic disproportion. Code Status & VTE Plan VTE Prophylaxis Plan VTE Prophylaxis will be ordered: No
[2023-11-20] MEDS ORDERED: LIDOCAINE 2%/EPINEPHRINE 1:200,000 20 ML PF ONE (19:06)
[2023-11-20] MEDS ORDERED: OXYTOCIN 10 UNITS/ML VIAL ONE ×2 (19:06→20:08)
[2023-11-20] MEDS ORDERED: MoRPHine SULFATE PF 1 MG/ML 10 ML AMP/VIAL ONE (19:07)
[2023-11-20] MEDS ORDERED: PHENYLEPHRINE HCL 25 MG/250 ML NSS IV ONE (19:09)
[2023-11-20 19:43] LABS: Hematocrit (blood only) 36.9 % (37.0-47.0); Hemoglobin 12.5 g/dl (12.0-16.0); Mean Corpuscular Hgb Conc 33.9 g/dL (32.0-36.0); Mean Corpuscular Volume 91.6 fL (80.0-100.0); Mean Platelet Volume 10.6 fL (9.4-12.4); Platelet Count 334 K/uL (130-400); RDW Coefficient of Variation 14.9 % (11.5-14.5); RDW Standard Deviation 49.4 fL (36.4-46.3); Red Blood Count 4.03 M/uL (4.20-5.40); White Blood Count 23.76 K/ul (4.8-10.8)
--- NOTE | 2023-11-20 19:47 | Anesthesiology Consultation ---
Date of Service November 20, 2023 Assessment & Plan ASA ASA2 Proposed Anesthesia Anesthesia Type: Labor Epidural and MAC Risk / Benefits Reviewed With: PT / POA / Parent / Guardian, Accepts Plan and Informed Consent Obtained Additional Comments: failure to progress now for cs History Height/Weight Height: 5 ft 6 in Weight: 124.861 kg Allergies Allergy/AdvReac Type Severity Reaction Status Date / Time adhesive Allergy Unknown RASH, BUMPS Verified 09/23/21 03:08 latex Allergy Unknown RASH AND Verified 09/23/21 03:08 SWELLING AT AREA Influenza Virus Vaccines Allergy Nausea Verified 11/12/23 00:12 Medications Home Medications Medication Instructions Recorded Confirmed Last Taken fluoxetine 40 mg capsule 20 mg PO DAILY 03/14/19 11/19/23 11/18/23 07:00 dextroamphetamine-amphetamine ER See Rx Instructions .Route .COMPLEX 11/03/20 11/19/23 11/19/23 07:00 20 mg 24hr capsule,extend release galcanezumab-gnlm 120 mg/mL 0 mg subcut DIRECTED 09/23/21 11/19/23 08/30/23 07:00 subcutaneous pen injector (Emgality Pen) Medical Marijuana Card See Rx Instructions .Route .COMPLEX 04/12/23 11/12/23 11/19/23 08:00 1 cap PO QAM 04/12/23 11/19/23 11/13/23 08:00 albuterol sulfate 90 mcg/actuation 90 mcg inhalation UD PRN exercise 04/12/23 11/19/23 11/19/23 06:30 aerosol inhaler induced asthma labetalol 100 mg tablet 100 mg PO BID 11/19/23 11/19/23 11/17/23 22:30 Active Medications Generic Name Dose Route Start Last Admin Trade Name Freq PRN Reason Stop Dose Admin Amphetamine/Dextroamphetamine 40 mg 11/20/23 10:00 11/20/23 11:12 Dextroamphetamine/Amphetamine Er 20 Mg Cap PO 12/04/23 09:59 40 mg QAM TRINIDAD Administration Fentanyl/Bupivacaine/Sodium Chlor 100 ml 11/19/23 20:15 11/20/23 17:57 Fentanyl 2 Mcg/Ml Bupivacaine 0.125%-Nss 100ml Bag EPI 11/20/23 20:14 100 ml PRN PRN Administration Pain R/T Labor Protocol Lactated Ringer's 1,000 mls @ 125 mls/hr 11/19/23 17:09 11/20/23 19:21 Lr IV 12/19/23 17:08 999 mls/hr .Q8H PRN Administration L&D Protocol Protocol Lactated Ringer's 1,000 mls @ 125 mls/hr 11/19/23 18:36 11/20/23 19:21 Lr IV 11/21/23 18:35 Infused .Q8H PRN Infusion L&D Protocol Protocol Penicillin G Potassium 3 mu/ 106 mls @ 100 mls/hr 11/19/23 21:37 11/20/23 18:30 Dextrose IV 11/29/23 21:36 100 mls/hr Q4H PRN Administration GBS(+) Until Delivery Oxytocin 30 units in 500 mls @ 0 mls/hr 11/19/23 18:44 11/20/23 18:30 Pitocin 30 Units/Nss IV 11/21/23 18:43 0 units/hr .Q0M PRN 0 mls/hr Labor Induction/Augmentation Titration Protocol 0 UNITS/HR Labetalol HCl 100 mg 11/19/23 21:00 11/20/23 08:36 Labetalol Hcl 100 Mg Tab PO 12/19/23 20:59 100 mg BID TRINIDAD Administration Past Medical History Medical History Narcolepsy Anxiety Depression Mononucleosis Exercise / Class Metabolic Activity II 4-5 Yardwork/Stairs/Walk up hill Past Family History Family History Other Diabetes Stroke Past Surgical History Surgical History [place] teeth extracted H/O removal of cyst Past Anesthesia History No Hx of Anesthesia Complications and No Family Hx of Anesthesia Complications History of PONV No Hx of PONV and No Hx of Motion Sickness Social History Smoking Status: Current every day smoker Smoking cigarettes per day: 4 per day Hx Alcohol Use: No Hx Substance Use: No substance use type: marijuana Last Used Substance: Hours (ago) Last Used Substance Other:: 0800 Review of Systems denies fever/cough/ colds/ chest pain/ SOB/ VIRI denies VIRI Physical Exam Vital Signs Last Vital Signs Temp 36.8 C 11/20/23 18:00 Pulse 90 11/20/23 19:43 Resp 16 11/20/23 19:00 BP 167/90 H 11/20/23 19:43 Pulse Ox 97 11/20/23 19:41 ENMT Mouth: no TMJ abnormality and no dentition abnormality Thyromental Distance: > or= 3.5 Finger Breadths Mallampati Class: II Neck neck extension not limited Respiratory normal respiratory effort; no respiratory distress Auscultation: lungs clear to auscultation bilaterally Cardiovascular Rate/Rhythm: regular rate and regular rhythm Neurologic moves all extremities Psychiatric Orientation: alert and oriented x 3 Testing Laboratory Results 11/20/23 19:13 11/19/23 17:21 Blood Type A Positive 11/19/23 18:59 Antibody Screen NEGATIVE 11/19/23 18:59
[2023-11-20] MEDS ORDERED: LACTATED RINGER'S 500 ML IV PRN (19:48)
[2023-11-20] MEDS ORDERED: KETOROLAC 30 MG/ML VIAL IV PRN (19:48)
[2023-11-20] MEDS ORDERED: NALOXONE HCL 1 MG in SODIUM CHLORIDE 0.9% 1,000 ML IV PRN (19:48)
[2023-11-20] MEDS ORDERED: MoRPHine SULFATE 2 MG/ML CARP IV PRN (19:48)
[2023-11-20] MEDS ORDERED: ePHEDrine sulfate 50 MG/ML AMP IV PRN (19:48)
[2023-11-20] MEDS ORDERED: NALBUPHINE HCL INJ 10 MG/ML AMP IV PRN (19:48)
[2023-11-20] MEDS ORDERED: MoRPHine SULFATE PF 1 MG/ML 10 ML AMP/VIAL EPI ONE (19:48)
[2023-11-20] MEDS ORDERED: ONDANSETRON INJ 2 MG/ML 2 ML VIAL IV PRN (19:48)
[2023-11-20] MEDS ORDERED: NALOXONE HCL 0.4 MG/1 ML VIAL/CARP IV PRN (19:48)
[2023-11-20] MEDS ORDERED: HYDROmorphone INJ 0.5 MG/0.5 ML SYR IV PRN ×2 (19:48→21:21)
[2023-11-20] MEDS ORDERED: diphenhydrAMINE 50 MG/ML VIAL IV PRN (19:48)
[2023-11-20] MEDS ORDERED: NALOXONE HCL 0.08 MG in SYRINGE 1.8 ML IV PRN (19:48)
[2023-11-20] MEDS: ACETAMINOPHEN 500 MG TAB PO SCH (19:51)
[2023-11-20] MEDS: CITRIC ACID/SODIUM CITRATE 15 ML UDC PO SCH (19:52)
[2023-11-20] MEDS ORDERED: SODIUM CHLORIDE 0.9% 1,000 ML IV SCH (20:00)
[2023-11-20] MEDS ORDERED: NO NARCOTICS OR SEDATIVES SCH (20:00)
[2023-11-20] MEDS ORDERED: DC INTRASPINAL MORPHINE SCH (20:00)
[2023-11-20] MEDS: cefOXitin 2,000 MG in DEXTROSE 5 % MINI-B 50 ML IV SCH (20:02)
[2023-11-20] MEDS: OXYTOCIN 10 UNITS/ML 10ML VIAL IM ONE (20:49)
[2023-11-20] MEDS ORDERED: KETOROLAC 30 MG/ML VIAL ONE (21:06)
[2023-11-20] MEDS ORDERED: HYDROCORTISONE ACETATE 25 MG SUPP PR PRN (21:21)
[2023-11-20] MEDS ORDERED: DIPHTHER/TETAN/PERTUS Vaccine (Tdap, Adol/Adult) 0.5mL IM ONE (21:21)
[2023-11-20] MEDS ORDERED: SENNA 8.6 MG TAB PO PRN (21:21)
[2023-11-20] MEDS ORDERED: MAGNESIUM HYDROXIDE SUSP 30 ML UDC PO PRN (21:21)
[2023-11-20] MEDS ORDERED: CALCIUM CARBONATE 500 MG CHEWABLE TAB PO PRN (21:21)
[2023-11-20] MEDS ORDERED: BENZOCAINE 20% SPRY 85 APPLN/85 GM CAN EXT PRN (21:21)
--- NOTE | 2023-11-20 21:39 | Operative Report ---
Post Operative Report Pre & Post Diagnosis Operation Date: 11/20/23 19:00 Pre-Op Diagnosis: Prolong rupture of membranes Cepahlopelvic disproportion Direct OP Meconium Chronic HTN Post-Op Diagnosis: Prolong rupture of membranes Cepahlopelvic disproportion Direct OP Meconium Chronic HTN I identified the patient and participated in the time-out.: Yes Procedure Operation Date: 11/20/23 19:00 Actual Procedures p Primary Section. Live male child at 2034 - Franc Grace MD Surgeon Franc Grace MD Slat Basket Maker Machine [email or web address] Estimated Blood Loss 738 (DELIVERY QBL) Findings Consistent with Post-Op Diagnosis Meconium stained amniotic fluid. Direct occiput posterior position. Specimens Placenta Drains None Complications None Indications Arrest of labor secondary to direct occiput posterior position cephalopelvic disproportion. Description of Procedure Patient was brought to the OR table correctly identified by armband and conversation. Compression stockings were applied. IUPC and scalp monitors were removed. Epidural was topped off. A retractor was fastened to t he pannus of the abdomen. And pulled up towards the patient's head for better exposure of the lower segment. Abdomen was painted with an alcohol-based sterilizing solution. Was allowed to dry for 3 minutes. Her adequacy of the anesthesia was tested and found to be good. And a timeout was done. A Pfannenstiel incision was made and carried down to the anterior fascia by sharp dissection. Hemostasis was secured by electrocauterization. The fascia was incised transversely exposing the recti muscles. Recti muscles were in the midline. Peritoneum was carefully raised and entered. A retractor was placed into the abdominal excision for exposure of the lower uterine segment. Palpation revealed a vertex presentation. Which had not entered the pelvis. The peritoneum was entered in the lower uterine segment. Incision was carried laterally. And the bladder was advanced out of the lower uterine segment. The lower uterine segment was then cut with a knife. Then entered bluntly with the scissors. Thick meconium was noted at this time. Lower uterine segment was extended laterally with the 2 fingers. Operators hand was inserted into the uterine cavity. At this time the position of the head was noted to be direct posterior position. Affect this retractor was applied to the head. With fundal pressure the infant was delivered throughout through the lower uterine segment. Cord was allowed to clamp for 1 minute infant was suctioned through the mouth and the nose. Cord was then clamped cut and the was handed off to the postal service sectional center manager. Cord blood was taken. The placenta was removed manually from the uterine cavity. Uterus tubes and ovaries were brought out through the abdominal incision. Uterine cavity was cleansed with a clean sponge. 10 units of Pitocin was injected into the myometrium. The lower uterine defect was visualized with ring forceps. The first layer of closure was a heavy-duty chromic which approximated the muscular layer of the uterine defect. Both corners of the defect were carefully identified and sutured. A second layer was placed over this with heavy-duty Vicryl and this approximated the fascial layer over the muscular layer. This was done with both horizontal and vertical sutures of the Vicryl. Although the muscular layer was was covered. Hemostasis at this point was good. The peritoneum was restored with a running 3-0 plain which restored integrity of the vesicouterine fold. Pelvis was cleansed of all blood clots and debris and irrigated. Tubes and ovaries were inspected and found to be normal. Uterus tubes and ovaries were reinserted into the abdominal cavity. Hemostasis was checked for and found to be good. Careful anatomical approximation of the anterior abdominal wall was performed. Peritoneum was closed with a running chromic gut suture. Recti muscles were approximated with interrupted [id number] suture chromic catgut. Fascial layer was closed with a continuous interlocking suture of Vicryl from the left side to the middle and then from the right side of the defect of the to the middle incision and was then washed clean. Subcu was approximated in 2 layers. Fascial layer was approximated with a continuous plain suture. Then a second layer was approximated over this with a continuous plain suture skin edges were approximated with skin patrice and a ayan dressing was applied. I attest to the content of the Intraoperative Record and any orders documented therein. Any exceptions are noted below. Slat Basket Maker Machine was necessary for retraction and manipulation of instruments in order to provide for safe surgery. Difficulty of the surgery was increased because of the weight of the patient.
--- NOTE | 2023-11-20 22:29 | Anesthesiology Progress Note ---
Date of Service November 20, 2023 Anesthesia Post Procedure Vital Signs Vital Signs: Temp Pulse Resp BP Pulse Ox 11/20/23 22:26 94 H 95/50 L 11/20/23 22:24 91 H 97 11/20/23 22:20 98 H 90 11/20/23 22:19 93 H 99 11/20/23 22:15 16 11/20/23 22:15 86 126/65 11/20/23 22:14 90 99 11/20/23 22:09 101 H 100 11/20/23 22:08 94 H 94 11/20/23 22:05 16 11/20/23 22:05 90 137/75 11/20/23 22:04 92 H 99 11/20/23 21:59 95 H 100 11/20/23 21:55 16 11/20/23 21:55 81 119/65 11/20/23 21:54 89 99 11/20/23 21:49 87 100 11/20/23 21:45 16 11/20/23 21:45 90 111/60 11/20/23 21:44 91 H 100 11/20/23 21:39 90 99 11/20/23 21:37 100 H 105/54 L 11/20/23 21:35 16 11/20/23 21:34 91 H 99 11/20/23 21:32 150 H 92 11/20/23 21:29 86 100 11/20/23 21:25 36.7 C 11/20/23 21:25 91 H 103/54 L 11/20/23 21:24 99 H 100 11/20/23 20:04 18 11/20/23 20:04 18 11/20/23 20:01 100 H 99 11/20/23 19:58 82 168/82 H 11/20/23 19:56 79 97 11/20/23 19:51 89 98 11/20/23 19:46 101 H 99 11/20/23 19:43 90 167/90 H 11/20/23 19:41 87 97 11/20/23 19:36 96 H 98 11/20/23 19:31 88 98 11/20/23 19:30 16 11/20/23 19:30 16 11/20/23 19:28 98 H 164/89 H 11/20/23 19:26 104 H 99 11/20/23 19:21 97 H 99 11/20/23 19:17 93 H 154/80 H 11/20/23 19:16 100 H 99 11/20/23 19:13 96 H 168/100 H 11/20/23 19:11 95 H 99 11/20/23 19:06 101 H 99 11/20/23 19:05 36.4 C L 16 11/20/23 19:01 97 H 99 11/20/23 19:00 16 11/20/23 19:00 16 11/20/23 18:58 102 H 163/89 H 11/20/23 18:56 94 H 98 11/20/23 18:51 105 H 98 11/20/23 18:46 102 H 99 11/20/23 18:41 94 H 99 11/20/23 18:36 95 H 99 11/20/23 18:31 101 H 100 11/20/23 18:28 100 H 137/86 11/20/23 18:26 85 98 11/20/23 18:21 98 H 99 11/20/23 18:16 93 H 99 11/20/23 18:13 96 H 11/20/23 18:13 106 H 136/82 86 L 11/20/23 18:11 98 H 92 11/20/23 18:07 101 H 89 L 11/20/23 18:06 101 H 98 11/20/23 18:01 100 H 96 11/20/23 18:00 16 11/20/23 18:00 36.8 C 16 11/20/23 17:59 103 H 123/95 86 L 11/20/23 17:56 105 H 92 11/20/23 17:51 101 H 96 11/20/23 17:46 71 L 11/20/23 17:46 110 H 11/20/23 17:46 105 H 85 L 11/20/23 17:43 98 H 121/84 11/20/23 17:41 108 H 94 11/20/23 17:36 97 11/20/23 17:36 93 H 11/20/23 17:36 90 129/71 11/20/23 17:33 108 H 90 11/20/23 17:31 109 H 99 11/20/23 17:26 103 H 94 11/20/23 17:21 99 H 96 11/20/23 17:16 107 H 98 11/20/23 17:13 105 H 120/59 L 11/20/23 17:11 103 H 95 11/20/23 17:06 99 H 96 11/20/23 17:01 87 94 11/20/23 17:00 16 11/20/23 17:00 36.7 C 16 11/20/23 16:59 87 127/79 11/20/23 16:56 87 94 11/20/23 16:51 89 94 11/20/23 16:46 90 95 11/20/23 16:43 91 H 124/81 11/20/23 16:41 91 H 94 11/20/23 16:36 88 93 11/20/23 16:31 86 95 11/20/23 16:30 16 11/20/23 16:30 36.8 C 16 11/20/23 16:28 92 H 117/67 11/20/23 16:26 94 H 94 11/20/23 16:21 96 H 93 11/20/23 16:16 95 H 92 11/20/23 16:14 97 H 119/80 91 11/20/23 16:11 95 H 92 11/20/23 16:06 96 H 93 11/20/23 16:01 97 H 92 11/20/23 16:00 16 11/20/23 16:00 16 11/20/23 15:58 96 H 112/67 11/20/23 15:56 98 H 93 11/20/23 15:52 104 H 91 11/20/23 15:51 94 H 93 11/20/23 15:47 98 H 90 11/20/23 15:46 96 H 92 11/20/23 15:43 93 H 117/78 11/20/23 15:41 92 11/20/23 15:41 93 H 11/20/23 15:41 98 H 91 11/20/23 15:36 99 H 92 11/20/23 15:35 103 H 91 11/20/23 15:31 111 H 96 11/20/23 15:30 16 11/20/23 15:30 36.4 C L 16 11/20/23 15:27 106 H 131/80 11/20/23 15:26 103 H 97 11/20/23 15:25 111 H 86 L 11/20/23 15:21 104 H 95 11/20/23 15:16 105 H 95 11/20/23 15:12 85 126/83 11/20/23 15:11 97 H 95 11/20/23 15:08 95 H 131/86 11/20/23 15:06 92 H 98 11/20/23 15:02 90 176/110 H 11/20/23 15:01 90 96 11/20/23 15:00 22 11/20/23 15:00 22 11/20/23 14:58 95 H 85 L 11/20/23 14:56 90 96 11/20/23 14:52 81 190/81 H 11/20/23 14:51 79 94 11/20/23 14:47 85 175/91 H 11/20/23 14:46 87 97 11/20/23 14:43 86 149/88 H 11/20/23 14:41 85 96 11/20/23 14:36 87 157/83 H 96 11/20/23 14:31 81 157/75 H 95 11/20/23 14:30 16 11/20/23 14:30 16 11/20/23 14:26 90 155/72 H 98 11/20/23 14:22 82 148/70 H 11/20/23 14:21 83 96 11/20/23 14:18 83 159/104 H 11/20/23 14:16 82 98 11/20/23 14:12 83 179/107 H 11/20/23 14:11 90 97 11/20/23 14:06 80 169/93 H 96 11/20/23 14:04 79 176/95 H 11/20/23 14:02 86 90 11/20/23 14:01 86 97 11/20/23 14:00 16 11/20/23 14:00 36.8 C 16 11/20/23 13:57 88 173/106 H 11/20/23 13:56 90 98 11/20/23 13:52 82 147/106 H 11/20/23 13:51 86 139/101 H 97 11/20/23 13:46 91 H 98 11/20/23 13:44 87 150/93 H 11/20/23 13:41 91 H 161/95 H 98 11/20/23 13:36 91 H 95 11/20/23 13:31 83 97 11/20/23 13:30 16 11/20/23 13:30 36.7 C 16 11/20/23 13:26 81 145/92 H 96 11/20/23 13:21 91 H 97 11/20/23 13:16 88 96 11/20/23 13:15 80 151/89 H 11/20/23 13:11 86 159/96 H 95 11/20/23 13:06 87 96 11/20/23 13:01 91 H 96 11/20/23 13:00 16 11/20/23 13:00 16 11/20/23 12:56 102 H 112/64 97 11/20/23 12:51 89 97 11/20/23 12:46 89 96 11/20/23 12:42 95 H 143/90 H 11/20/23 12:41 89 97 11/20/23 12:36 88 97 11/20/23 12:31 89 97 11/20/23 12:30 16 11/20/23 12:30 16 11/20/23 12:27 97 H 132/85 11/20/23 12:26 98 H 97 11/20/23 12:21 95 H 97 11/20/23 12:16 91 H 98 11/20/23 12:11 89 133/86 96 11/20/23 12:06 93 H 97 11/20/23 12:01 97 H 97 11/20/23 12:00 36.8 C 93 H 18 135/89 11/20/23 11:56 97 H 97 11/20/23 11:51 104 H 97 11/20/23 11:46 87 96 11/20/23 11:41 88 139/84 97 11/20/23 11:36 90 97 11/20/23 11:31 88 97 11/20/23 11:30 16 11/20/23 11:30 16 11/20/23 11:26 97 11/20/23 11:26 87 11/20/23 11:26 86 139/77 11/20/23 11:21 91 H 96 11/20/23 11:16 90 97 11/20/23 11:12 96 H 146/83 H 11/20/23 11:11 98 H 97 11/20/23 11:06 93 H 96 11/20/23 11:01 94 H 97 11/20/23 11:00 16 11/20/23 11:00 16 11/20/23 10:57 88 133/73 11/20/23 10:56 89 98 11/20/23 10:51 90 97 11/20/23 10:46 93 H 96 11/20/23 10:41 94 H 143/79 H 98 11/20/23 10:36 99 H 98 11/20/23 10:31 99 H 97 11/20/23 10:30 16 11/20/23 10:30 16 11/20/23 10:26 100 H 98 11/20/23 10:22 36.7 C 11/20/23 10:21 102 H 97 11/20/23 10:16 100 H 97 11/20/23 10:12 100 H 134/84 11/20/23 10:11 99 H 96 11/20/23 10:06 97 H 97 11/20/23 10:01 102 H 96 11/20/23 10:00 16 11/20/23 10:00 16 11/20/23 09:56 96 H 134/80 97 11/20/23 09:51 101 H 96 11/20/23 09:46 101 H 96 11/20/23 09:41 95 11/20/23 09:41 97 H 11/20/23 09:41 98 H 128/81 11/20/23 09:36 102 H 98 11/20/23 09:31 99 H 96 11/20/23 09:30 16 11/20/23 09:30 16 11/20/23 09:26 97 H 129/72 96 11/20/23 09:21 93 H 96 11/20/23 09:16 97 H 97 11/20/23 09:11 96 H 136/90 96 11/20/23 09:06 105 H 97 11/20/23 09:01 114 H 98 11/20/23 09:00 16 11/20/23 09:00 36.8 C 16 11/20/23 08:56 100 H 155/76 H 96 11/20/23 08:51 98 H 96 11/20/23 08:46 98 H 96 11/20/23 08:41 99 H 149/85 H 96 11/20/23 08:36 102 H 98 11/20/23 08:31 102 H 98 11/20/23 08:30 16 11/20/23 08:30 16 11/20/23 08:26 107 H 130/74 97 11/20/23 08:21 100 H 99 11/20/23 08:16 96 H 97 11/20/23 08:11 95 11/20/23 08:11 90 11/20/23 08:11 81 136/77 11/20/23 08:06 91 H 95 11/20/23 08:01 92 H 96 11/20/23 07:56 96 11/20/23 07:56 92 H 11/20/23 07:56 98 H 137/79 11/20/23 07:51 88 96 11/20/23 07:46 93 H 97 11/20/23 07:42 110 H 132/80 11/20/23 07:41 91 H 96 11/20/23 07:36 89 95 11/20/23 07:31 94 H 95 11/20/23 07:26 95 11/20/23 07:26 86 11/20/23 07:26 86 144/86 H 11/20/23 07:21 87 98 11/20/23 07:16 91 H 96 11/20/23 07:12 83 135/80 11/20/23 07:11 98 H 98 11/20/23 07:06 99 H 99 11/20/23 07:05 36.7 C 16 11/20/23 07:05 36.7 C 11/20/23 07:01 86 95 11/20/23 07:00 16 11/20/23 07:00 16 11/20/23 06:58 86 138/85 11/20/23 06:56 102 H 97 11/20/23 06:51 92 H 98 11/20/23 06:46 91 H 97 11/20/23 06:44 89 141/83 H 11/20/23 06:42 98 H 157/128 H 11/20/23 06:41 101 H 97 11/20/23 06:36 86 96 11/20/23 06:31 89 95 11/20/23 06:26 96 11/20/23 06:26 86 11/20/23 06:26 84 150/84 H 11/20/23 06:21 87 95 11/20/23 06:16 89 95 08/28/24 06:11 87 146/86 H 95 11/20/23 06:06 87 95 11/20/23 06:01 89 95 11/20/23 06:00 18 11/20/23 06:00 18 11/20/23 05:57 96 H 135/83 11/20/23 05:56 100 H 98 11/20/23 05:51 92 H 97 11/20/23 05:46 91 H 96 11/20/23 05:41 93 H 152/86 H 97 11/20/23 05:36 99 H 97 11/20/23 05:31 102 H 97 11/20/23 05:30 16 11/20/23 05:30 16 11/20/23 05:29 93 H 148/88 H 11/20/23 05:27 101 H 168/93 H 11/20/23 05:26 93 H 97 11/20/23 05:21 108 H 97 11/20/23 05:16 92 H 98 11/20/23 05:13 92 H 133/69 11/20/23 05:11 92 H 97 11/20/23 05:06 91 H 97 11/20/23 05:01 98 H 98 11/20/23 05:00 18 11/20/23 05:00 37.0 C 18 11/20/23 04:56 98 11/20/23 04:56 81 11/20/23 04:56 98 H 131/73 11/20/23 04:51 87 98 11/20/23 04:46 89 96 11/20/23 04:43 98 H 133/75 11/20/23 04:41 91 H 98 11/20/23 04:36 91 H 97 11/20/23 04:31 88 97 11/20/23 04:30 18 11/20/23 04:30 18 11/20/23 04:27 94 H 128/73 11/20/23 04:26 89 97 11/20/23 04:21 89 97 11/20/23 04:16 92 H 97 11/20/23 04:12 95 H 139/72 11/20/23 04:11 98 H 97 11/20/23 04:06 92 H 96 11/20/23 04:01 86 95 11/20/23 04:00 16 11/20/23 04:00 16 11/20/23 03:56 95 11/20/23 03:56 85 11/20/23 03:56 86 125/65 11/20/23 03:51 86 95 11/20/23 03:46 87 95 11/20/23 03:41 95 11/20/23 03:41 88 11/20/23 03:41 84 115/61 11/20/23 03:36 86 96 11/20/23 03:31 91 H 96 11/20/23 03:30 18 11/20/23 03:30 18 11/20/23 03:26 97 11/20/23 03:26 97 H 11/20/23 03:26 91 H 125/66 11/20/23 03:21 110 H 98 11/20/23 03:17 105 H 91 11/20/23 03:16 94 H 97 11/20/23 03:13 93 H 126/67 11/20/23 03:11 101 H 98 11/20/23 03:06 84 95 11/20/23 03:01 91 H 95 11/20/23 03:00 18 11/20/23 03:00 36.8 C 18 11/20/23 02:56 87 119/61 95 11/20/23 02:51 84 96 11/20/23 02:46 90 94 11/20/23 02:41 94 11/20/23 02:41 84 11/20/23 02:41 89 118/60 11/20/23 02:36 91 H 94 11/20/23 02:31 87 94 11/20/23 02:30 18 11/20/23 02:30 18 11/20/23 02:26 87 119/61 95 11/20/23 02:21 84 95 11/20/23 02:16 84 95 11/20/23 02:11 97 11/20/23 02:11 99 H 11/20/23 02:11 102 H 114/57 L 11/20/23 02:06 91 H 93 11/20/23 02:01 92 H 94 11/20/23 02:00 18 11/20/23 02:00 18 11/20/23 01:56 91 H 122/63 94 11/20/23 01:51 91 H 94 11/20/23 01:48 89 94 11/20/23 01:46 90 95 11/20/23 01:41 97 11/20/23 01:41 83 11/20/23 01:41 94 H 134/72 11/20/23 01:36 88 100 11/20/23 01:31 91 H 100 11/20/23 01:26 100 11/20/23 01:26 90 11/20/23 01:26 87 131/71 11/20/23 01:21 89 100 11/20/23 01:16 89 97 11/20/23 01:12 86 118/66 94 11/20/23 01:11 88 95 11/20/23 01:07 90 94 11/20/23 01:06 87 95 11/20/23 01:01 83 98 11/20/23 01:00 20 11/20/23 01:00 37.0 C 20 11/20/23 00:56 93 H 99 11/20/23 00:55 95 H 92 11/20/23 00:51 81 99 11/20/23 00:46 90 98 11/20/23 00:41 88 129/75 98 11/20/23 00:36 88 99 11/20/23 00:31 91 H 97 11/20/23 00:30 18 11/20/23 00:30 18 11/20/23 00:27 86 130/75 11/20/23 00:26 92 H 98 11/20/23 00:21 89 97 11/20/23 00:16 90 99 11/20/23 00:13 81 123/72 11/20/23 00:11 83 99 11/20/23 00:06 86 100 11/20/23 00:01 81 98 11/20/23 00:00 18 11/20/23 00:00 18 11/19/23 23:56 98 11/19/23 23:56 84 11/19/23 23:56 78 141/85 H 11/19/23 23:51 94 H 98 11/19/23 23:46 85 99 11/19/23 23:41 91 H 144/85 H 99 11/19/23 23:36 96 H 99 11/19/23 23:31 97 H 98 11/19/23 23:30 18 11/19/23 23:30 18 08/27/24 23:26 96 11/19/23 23:26 88 11/19/23 23:26 76 142/75 H 11/19/23 23:21 84 97 11/19/23 23:16 89 99 11/19/23 23:11 87 143/76 H 97 11/19/23 23:06 87 99 11/19/23 23:01 86 98 11/19/23 23:00 36.8 C 11/19/23 22:56 98 11/19/23 22:56 87 11/19/23 22:56 95 H 154/97 H 11/19/23 22:53 100 H 94 11/19/23 22:51 99 H 98 11/19/23 22:46 108 H 98 11/19/23 22:41 98 H 130/72 97 11/19/23 22:36 106 H 98 11/19/23 22:31 106 H 99 Transfer of Care Handoff Completed per policy Notes Mental Status: alert / awake / arousable and participated in evaluation Patient Amnestic to Procedure: Yes Nausea / Vomiting: adequately controlled Pain: adequately controlled Airway Patency, RR, SpO2: stable & adequate BP & HR: stable & adequate Hydration State: stable & adequate Anesthetic Complications: no major complications apparent and Pt Satisfied with anesthetic care
--- NOTE | 2023-11-20 22:29 | Anesthesia Procedure Note ---
Date of Service November 20, 2023 Anesthesia Post Epidural Note Vital Signs Vital Signs: Temp Pulse Resp BP Pulse Ox 36.7 C 94 H 16 95/50 L 97 11/20/23 21:25 11/20/23 22:26 11/20/23 22:15 11/20/23 22:26 11/20/23 22:24 Notes Mental Status: alert / awake / arousable and participated in evaluation Nausea / Vomiting: adequately controlled Pain: adequately controlled Airway Patency, RR, SpO2: stable & adequate BP & HR: stable & adequate Hydration State: stable & adequate Neuraxial Anesthesia: was administered and sensory block resolved Anesthetic Complications: no major complications apparent and Pt Satisfied with anesthetic care Epidural: Removed without complications and With tip intact
[2023-11-20 23:02] LABS: HIV 4th Gen(HIV 1,2 AB+p24 Ag Negative (Negative)
[2023-11-20 23:09] LABS: Hep B Surface Ag with confirm Negative (Negative)
[2023-11-20] MEDS: OXYTOCIN 30 UNITS/LR 1,003 ML IV SCH (23:55)
[2023-11-21] MEDS: IBUPROFEN 600 MG TAB PO SCH (02:00)
[2023-11-21] MEDS: ACETAMINOPHEN 325 MG TAB PO SCH (02:00)
[2023-11-21] MEDS: KETOROLAC 30 MG/ML VIAL IV SCH (04:24)
[2023-11-21 06:33] LABS: Basophils # (auto) 0.08 K/uL (0.00-0.20); Basophils % (auto) 0.4 %; Eosinophils # (auto) 0.08 K/uL (0.00-0.50); Eosinophils % (auto) 0.4 %; Hematocrit (blood only) 30.6 % (37.0-47.0); Hemoglobin 10.3 g/dl (12.0-16.0); Immature Granulocytes # (auto) 0.17 K/uL (0.01-0.20); Immature Granulocytes % (auto) 0.8 %; Lymphocytes # (auto) 2.73 K/uL (1.20-3.40); Lymphocytes % (auto) 12.2 %; Mean Corpuscular Hemoglobin 30.9 pg (25.0-34.0); Mean Corpuscular Hgb Conc 33.7 g/dL (32.0-36.0); Mean Corpuscular Volume 91.9 fL (80.0-100.0); Mean Platelet Volume 10.8 fL (9.4-12.4); Monocytes # (auto) 1.96 K/uL (0.11-0.59); Monocytes % (auto) 8.7 %; Neutrophils # (auto) 17.41 K/uL (1.40-6.50); Neutrophils % (auto) 77.5 %; Platelet Count 324 K/uL (130-400); RDW Coefficient of Variation 14.7 % (11.5-14.5); RDW Standard Deviation 48.9 fL (36.4-46.3); Red Blood Count 3.33 M/uL (4.20-5.40); White Blood Count 22.43 K/ul (4.8-10.8)
[2023-11-21] MEDS: FERROUS SULFATE 325 MG TAB PO SCH (08:31)
[2023-11-21] MEDS: SIMETHICONE 80 MG CHEW PO SCH (08:31)
[2023-11-21] MEDS: LABETALOL HCL 100 MG TAB PO SCH (08:31)
[2023-11-21] MEDS: DOCUSATE SODIUM 100 MG CAP PO SCH (08:32)
[2023-11-21] MEDS: PRENATAL VITAMIN 1 TAB PO SCH (08:32)
--- NOTE | 2023-11-21 10:01 | Obstetrical Progress Note ---
Date of Service November 21, 2023 Subjective Ambulation: ambulating normally Voiding: no voiding problems Passing Gas:: Yes Diet Tolerance:: regular diet Lochia:: Small Feeding Type:: breast feeding Current Pain Level(1-10): 0 doing well Physical Exam Constitutional WD/WN, vitals as above Musculoskeletal Extremities: extremities normal to inspection Skin no rashes, warm and dry Neurologic patellar DTR's 2+ bilat, sensation intact Psychiatric A+Ox3, euthymic affect Results & Data Vital Signs (Past 12 Hours) Vital Signs Temp Pulse Pulse Resp BP BP Pulse Ox 11/21/23 09:37 16 99 11/21/23 08:30 16 99 11/21/23 07:40 36.6 C 93 H 16 143/99 H 99 11/21/23 07:30 16 100 11/21/23 06:00 18 97 11/21/23 05:00 18 96 11/21/23 04:00 18 96 11/21/23 03:15 16 96 11/21/23 03:15 36.8 C 87 18 143/94 H 96 11/21/23 02:00 18 96 11/21/23 01:00 18 96 11/21/23 00:00 37.2 C 93 H 18 138/90 96 11/21/23 00:00 18 96 11/20/23 23:43 84 157/82 H 11/20/23 23:40 98 H 168/88 H 11/20/23 23:39 99 11/20/23 23:39 97 H 11/20/23 23:39 92 H 181/93 H 11/20/23 23:35 99 H 189/89 H 11/20/23 23:34 97 H 98 11/20/23 23:29 98 H 96 11/20/23 23:25 16 11/20/23 23:25 98 H 170/91 H 11/20/23 23:24 97 H 98 11/20/23 23:19 88 98 11/20/23 23:16 85 167/85 H 11/20/23 23:14 91 H 97 11/20/23 23:09 93 H 98 11/20/23 23:05 89 160/81 H 11/20/23 23:04 94 H 99 11/20/23 22:59 93 H 99 11/20/23 22:55 16 11/20/23 22:54 89 98 11/20/23 22:49 89 99 11/20/23 22:44 95 H 98 11/20/23 22:39 90 98 11/20/23 22:34 90 98 11/20/23 22:29 93 H 99 11/20/23 22:26 94 H 95/50 L 11/20/23 22:25 36.6 C 16 11/20/23 22:25 36.6 C 16 11/20/23 22:24 91 H 97 11/20/23 22:20 98 H 90 11/20/23 22:19 93 H 99 11/20/23 22:15 16 11/20/23 22:15 86 126/65 11/20/23 22:14 90 99 11/20/23 22:09 101 H 100 11/20/23 22:08 94 H 94 11/20/23 22:05 16 11/20/23 22:05 90 137/75 11/20/23 22:04 92 H 99 O2 Del Method 11/21/23 09:37 11/21/23 08:30 11/21/23 07:40 Room Air 11/21/23 07:30 11/21/23 06:00 11/21/23 05:00 11/21/23 04:00 11/21/23 03:15 11/21/23 03:15 Room Air 11/21/23 02:00 11/21/23 01:00 11/21/23 00:00 Room Air 11/21/23 00:00 11/20/23 23:43 11/20/23 23:40 11/20/23 23:39 11/20/23 23:39 11/20/23 23:39 11/20/23 23:35 11/20/23 23:34 11/20/23 23:29 11/20/23 23:25 11/20/23 23:25 11/20/23 23:24 11/20/23 23:19 11/20/23 23:16 11/20/23 23:14 11/20/23 23:09 11/20/23 23:05 11/20/23 23:04 11/20/23 22:59 11/20/23 22:55 11/20/23 22:54 11/20/23 22:49 11/20/23 22:44 11/20/23 22:39 11/20/23 22:34 11/20/23 22:29 11/20/23 22:26 11/20/23 22:25 11/20/23 22:25 11/20/23 22:24 11/20/23 22:20 11/20/23 22:19 11/20/23 22:15 11/20/23 22:15 11/20/23 22:14 11/20/23 22:09 11/20/23 22:08 11/20/23 22:05 11/20/23 22:05 11/20/23 22:04 Laboratory Results Laboratory Results - last 72 hr 11/19/23 11/19/23 11/19/23 17:21 18:29 18:59 WBC 19.26 H 18.54 H RBC 4.08 L 4.06 L Hgb 12.8 12.5 Hct 37.0 37.8 MCV 90.7 93.1 MCH 31.4 30.8 MCHC 34.6 33.1 RDW Std Deviation 47.2 H 48.9 H RDW Coeff of Nicole 14.6 H 14.8 H Plt Count 383 377 MPV 10.6 10.6 Immature Gran % (Auto) 0.6 Neut % (Auto) 79.4 Lymph % (Auto) 11.4 [place] % (Auto) 8.2 Eos % (Auto) 0.1 Baso % (Auto) 0.3 Neut # (Auto) 15.30 H Lymph # (Auto) 2.19 [place] # (Auto) 1.57 H Eos # (Auto) 0.02 Baso # (Auto) 0.06 Immature Gran # (Auto) 0.12 Sodium 134 L Potassium 4.2 Chloride 107 Carbon Dioxide 19 L Anion Gap 8 BUN 14 Creatinine 0.71 Est Cr Clr Drug Dosing Not Reportable Est GFR ( Amer) 130.6 Est GFR (Non-Af Amer) 112.7 BUN/Creatinine Ratio 19.7 Glucose 134 H Calcium 9.4 Total Bilirubin 0.2 AST 15 ALT 7 Alkaline Phosphatase 188 H Total Protein 7.0 Albumin 3.3 L Globulin 3.7 Albumin/Globulin Ratio 0.9 Ur Random Creatinine U Random Total Protein Protein/Creatinin Ratio Urine Opiates Screen Ur Methadone, Qual Urine Fentanyl Screen Urine Barbiturates Ur Phencyclidine (PCP) U Amphetamin/Meth Scrn MDMA (Ecstasy) Screen U Benzodiazepines Scrn Ur Cocaine Metabolite U Marijuana (THC) Screen Treponema pallidum Ab Negative Hep Bs Antigen HIV 1&2 Ab/P24 Ag 4thGn Blood Type Cancelled A Positive Antibody Screen Cancelled NEGATIVE 11/19/23 11/20/23 11/20/23 Unknown 18:59 19:13 WBC 23.76 H RBC 4.03 L Hgb 12.5 Hct 36.9 L MCV 91.6 MCH 31.0 MCHC 33.9 RDW Std Deviation 49.4 H RDW Coeff of Nicole 14.9 H Plt Count 334 MPV 10.6 Immature Gran % (Auto) Neut % (Auto) Lymph % (Auto) [place] % (Auto) Eos % (Auto) Baso % (Auto) Neut # (Auto) Lymph # (Auto) [place] # (Auto) Eos # (Auto) Baso # (Auto) Immature Gran # (Auto) Sodium Potassium Chloride Carbon Dioxide Anion Gap BUN Creatinine Est Cr Clr Drug Dosing Est GFR ( Amer) Est GFR (Non-Af Amer) BUN/Creatinine Ratio Glucose Calcium Total Bilirubin AST ALT Alkaline Phosphatase Total Protein Albumin Globulin Albumin/Globulin Ratio Ur Random Creatinine 146.2 U Random Total Protein 22.2 H Protein/Creatinin Ratio 0.2 Urine Opiates Screen Neg Ur Methadone, Qual Neg Urine Fentanyl Screen Neg Urine Barbiturates Neg Ur Phencyclidine (PCP) Neg U Amphetamin/Meth Scrn Pos H MDMA (Ecstasy) Screen Neg U Benzodiazepines Scrn Neg Ur Cocaine Metabolite Neg U Marijuana (THC) Screen Pos H Treponema pallidum Ab Hep Bs Antigen Negative HIV 1&2 Ab/P24 Ag 4thGn Negative Blood Type Antibody Screen 11/21/23 06:08 WBC 22.43 H RBC 3.33 L Hgb 10.3 L Hct 30.6 L MCV 91.9 MCH 30.9 MCHC 33.7 RDW Std Deviation 48.9 H RDW Coeff of Nicole 14.7 H Plt Count 324 MPV 10.8 Immature Gran % (Auto) 0.8 Neut % (Auto) 77.5 Lymph % (Auto) 12.2 [place] % (Auto) 8.7 Eos % (Auto) 0.4 Baso % (Auto) 0.4 Neut # (Auto) 17.41 H Lymph # (Auto) 2.73 [place] # (Auto) 1.96 H Eos # (Auto) 0.08 Baso # (Auto) 0.08 Immature Gran # (Auto) 0.17 Sodium Potassium Chloride Carbon Dioxide Anion Gap BUN Creatinine Est Cr Clr Drug Dosing Est GFR ( Amer) Est GFR (Non-Af Amer) BUN/Creatinine Ratio Glucose Calcium Total Bilirubin AST ALT Alkaline Phosphatase Total Protein Albumin Globulin Albumin/Globulin Ratio Ur Random Creatinine U Random Total Protein Protein/Creatinin Ratio Urine Opiates Screen Ur Methadone, Qual Urine Fentanyl Screen Urine Barbiturates Ur Phencyclidine (PCP) U Amphetamin/Meth Scrn MDMA (Ecstasy) Screen U Benzodiazepines Scrn Ur Cocaine Metabolite U Marijuana (THC) Screen Treponema pallidum Ab Hep Bs Antigen HIV 1&2 Ab/P24 Ag 4thGn Blood Type Antibody Screen
[2023-11-21] MEDS ORDERED: diphenhydrAMINE 50 MG/ML VIAL IV PRN (13:49)
[2023-11-21] MEDS ORDERED: ONDANSETRON INJ 2 MG/ML 2 ML VIAL IV PRN (13:49)
[2023-11-21] MEDS ORDERED: ZOLPIDEM TARTRATE 5 MG TAB PO PRN (13:49)
[2023-11-21] MEDS ORDERED: PROMETHAZINE 12.5 MG/50.5 ML BAG IV PRN (13:49)
[2023-11-21] MEDS ORDERED: diphenhydrAMINE Capsule 25 MG CAP PO PRN (13:49)
[2023-11-21] MEDS ORDERED: traMADol HCL 50 MG TABLET PO PRN (13:49)
--- NOTE | 2023-11-21 15:02 | Obstetrical Progress Note ---
Date of Service November 21, 2023 Physical Exam Gastrointestinal (Abdomen) Rosalba dressing saturated Rosalba dressing removed and incision was found to be intact with some drainage in the midline noted A new Rosalba dressing was applied Results & Data Vital Signs (Past 12 Hours) Vital Signs Temp Pulse Resp BP Pulse Ox O2 Del Method 11/21/23 12:07 36.9 C 67 16 134/78 99 Room Air 11/21/23 12:00 16 99 11/21/23 11:00 16 100 11/21/23 10:20 16 99 11/21/23 09:37 16 99 11/21/23 08:30 16 99 11/21/23 07:40 36.6 C 93 H 16 143/99 H 99 Room Air 11/21/23 07:30 16 100 11/21/23 06:00 18 97 11/21/23 05:00 18 96 11/21/23 04:00 18 96 11/21/23 03:15 16 96 11/21/23 03:15 36.8 C 87 18 143/94 H 96 Room Air
[2023-11-21] MEDS ORDERED: bisacodyL 5 MG TABEC PO SCH (20:00)
[2023-11-21] MEDS: oxyCODONE HCL IR 5 MG TAB (IMMEDIATE RELEASE) PO PRN (22:16)
[2023-11-21 23:14] VITALS: O2SAT 97
[2023-11-22 06:29] LABS: Hematocrit (blood only) 27.9 % (37.0-47.0); Hemoglobin 9.3 g/dl (12.0-16.0)
--- NOTE | 2023-11-22 08:54 | Obstetrical Progress Note ---
Date of Service November 22, 2023 Assessment & Plan Admission and Anticipated Discharge Date Admission Date: November 19, 2023 Subjective Patient is seen and examined. She feels well, no complaints other than being tired, did not get much sleep Pain is under control with oral meds. Ambulating without dizziness Voiding without difficulty Tolerating regular diet with out N&V Flatus + once BM none Bleeding is minimal No fever/ chills/ CP/ SOB/ N&V/ Leg pain Breast feeding without problems Lab Results 11/19/23 11/19/23 11/19/23 Range/Units 17:21 18:29 18:59 WBC 19.26 H 18.54 H (4.8-10.8) K/ul RBC 4.08 L 4.06 L (4.20-5.40) M/uL Hgb 12.8 12.5 (12.0-16.0) g/dl Hct 37.0 37.8 (37.0-47.0) % MCV 90.7 93.1 (80.0-100.0) fL MCH 31.4 30.8 (25.0-34.0) pg MCHC 34.6 33.1 (32.0-36.0) g/dL RDW Std Deviation 47.2 H 48.9 H (36.4-46.3) fL RDW Coeff of Nicole 14.6 H 14.8 H (11.5-14.5) % Plt Count 383 377 (130-400) K/uL MPV 10.6 10.6 (9.4-12.4) fL Immature Gran % (Auto) 0.6 % Neut % (Auto) 79.4 % Lymph % (Auto) 11.4 % [place] % (Auto) 8.2 % Eos % (Auto) 0.1 % Baso % (Auto) 0.3 % Neut # (Auto) 15.30 H (1.40-6.50) K/uL Lymph # (Auto) 2.19 (1.20-3.40) K/uL [place] # (Auto) 1.57 H (0.11-0.59) K/uL Eos # (Auto) 0.02 (0.00-0.50) K/uL Baso # (Auto) 0.06 (0.00-0.20) K/uL Immature Gran # (Auto) 0.12 (0.01-0.20) K/uL Sodium 134 L (136-145) mmol/L Potassium 4.2 (3.5-5.1) mmol/L Chloride 107 (98-107) mmol/L Carbon Dioxide 19 L (21-32) mmol/L Anion Gap 8 (3-11) BUN 14 (6-23) mg/dl Creatinine 0.71 (0.6-1.2) mg/dl Est Cr Clr Drug Dosing Not Reportable Est GFR ( Amer) 130.6 ml/min Est GFR (Non-Af Amer) 112.7 ml/min BUN/Creatinine Ratio 19.7 (10-20) Glucose 134 H (70-99(Fasting)) mg/dl Calcium 9.4 (8.6-10.3) mg/dl Total Bilirubin 0.2 (0.2-1.0) mg/dl AST 15 (13-39) U/L ALT 7 (7-52) U/L Alkaline Phosphatase 188 H (34-104) U/L Total Protein 7.0 (6.0-8.3) gm/dl Albumin 3.3 L (3.4-5.0) gm/dl Globulin 3.7 (2.5-4.0) gm/dl Albumin/Globulin Ratio 0.9 (0.9-2) Ur Random Creatinine mg/dl U Random Total Protein (0-11.9) mg/dl Protein/Creatinin Ratio (0-0.2) Urine Opiates Screen (Neg) Ur Methadone, Qual (Neg) Urine Fentanyl Screen (Neg) Urine Barbiturates (Neg) Ur Phencyclidine (PCP) (Neg) U Amphetamin/Meth Scrn (Neg) MDMA (Ecstasy) Screen (Neg) U Benzodiazepines Scrn (Neg) Ur Cocaine Metabolite (Neg) U Marijuana (THC) Screen (Neg) Treponema pallidum Ab Negative (Negative) Hep Bs Antigen (Negative) HIV 1&2 Ab/P24 Ag 4thGn (Negative) Blood Type Cancelled A Positive Antibody Screen Cancelled NEGATIVE 11/19/23 11/20/23 11/20/23 Range/Units Unknown 18:59 19:13 WBC 23.76 H (4.8-10.8) K/ul RBC 4.03 L (4.20-5.40) M/uL Hgb 12.5 (12.0-16.0) g/dl Hct 36.9 L (37.0-47.0) % MCV 91.6 (80.0-100.0) fL MCH 31.0 (25.0-34.0) pg MCHC 33.9 (32.0-36.0) g/dL RDW Std Deviation 49.4 H (36.4-46.3) fL RDW Coeff of Nicole 14.9 H (11.5-14.5) % Plt Count 334 (130-400) K/uL MPV 10.6 (9.4-12.4) fL Immature Gran % (Auto) % Neut % (Auto) % Lymph % (Auto) % [place] % (Auto) % Eos % (Auto) % Baso % (Auto) % Neut # (Auto) (1.40-6.50) K/uL Lymph # (Auto) (1.20-3.40) K/uL [place] # (Auto) (0.11-0.59) K/uL Eos # (Auto) (0.00-0.50) K/uL Baso # (Auto) (0.00-0.20) K/uL Immature Gran # (Auto) (0.01-0.20) K/uL Sodium (136-145) mmol/L Potassium (3.5-5.1) mmol/L Chloride (98-107) mmol/L Carbon Dioxide (21-32) mmol/L Anion Gap (3-11) BUN (6-23) mg/dl Creatinine (0.6-1.2) mg/dl Est Cr Clr Drug Dosing Est GFR ( Amer) ml/min Est GFR (Non-Af Amer) ml/min BUN/Creatinine Ratio (10-20) Glucose (70-99(Fasting)) mg/dl Calcium (8.6-10.3) mg/dl Total Bilirubin (0.2-1.0) mg/dl AST (13-39) U/L ALT (7-52) U/L Alkaline Phosphatase (34-104) U/L Total Protein (6.0-8.3) gm/dl Albumin (3.4-5.0) gm/dl Globulin (2.5-4.0) gm/dl Albumin/Globulin Ratio (0.9-2) Ur Random Creatinine 146.2 mg/dl U Random Total Protein 22.2 H (0-11.9) mg/dl Protein/Creatinin Ratio 0.2 (0-0.2) Urine Opiates Screen Neg (Neg) Ur Methadone, Qual Neg (Neg) Urine Fentanyl Screen Neg (Neg) Urine Barbiturates Neg (Neg) Ur Phencyclidine (PCP) Neg (Neg) U Amphetamin/Meth Scrn Pos H (Neg) MDMA (Ecstasy) Screen Neg (Neg) U Benzodiazepines Scrn Neg (Neg) Ur Cocaine Metabolite Neg (Neg) U Marijuana (THC) Screen Pos H (Neg) Treponema pallidum Ab (Negative) Hep Bs Antigen Negative (Negative) HIV 1&2 Ab/P24 Ag 4thGn Negative (Negative) Blood Type Antibody Screen 11/21/23 11/22/23 Range/Units 06:08 05:39 WBC 22.43 H (4.8-10.8) K/ul RBC 3.33 L (4.20-5.40) M/uL Hgb 10.3 L 9.3 L (12.0-16.0) g/dl Hct 30.6 L 27.9 L (37.0-47.0) % MCV 91.9 (80.0-100.0) fL MCH 30.9 (25.0-34.0) pg MCHC 33.7 (32.0-36.0) g/dL RDW Std Deviation 48.9 H (36.4-46.3) fL RDW Coeff of Nicole 14.7 H (11.5-14.5) % Plt Count 324 (130-400) K/uL MPV 10.8 (9.4-12.4) fL Immature Gran % (Auto) 0.8 % Neut % (Auto) 77.5 % Lymph % (Auto) 12.2 % [place] % (Auto) 8.7 % Eos % (Auto) 0.4 % Baso % (Auto) 0.4 % Neut # (Auto) 17.41 H (1.40-6.50) K/uL Lymph # (Auto) 2.73 (1.20-3.40) K/uL [place] # (Auto) 1.96 H (0.11-0.59) K/uL Eos # (Auto) 0.08 (0.00-0.50) K/uL Baso # (Auto) 0.08 (0.00-0.20) K/uL Immature Gran # (Auto) 0.17 (0.01-0.20) K/uL Sodium (136-145) mmol/L Potassium (3.5-5.1) mmol/L Chloride (98-107) mmol/L Carbon Dioxide (21-32) mmol/L Anion Gap (3-11) BUN (6-23) mg/dl Creatinine (0.6-1.2) mg/dl Est Cr Clr Drug Dosing Est GFR ( Amer) ml/min Est GFR (Non-Af Amer) ml/min BUN/Creatinine Ratio (10-20) Glucose (70-99(Fasting)) mg/dl Calcium (8.6-10.3) mg/dl Total Bilirubin (0.2-1.0) mg/dl AST (13-39) U/L ALT (7-52) U/L Alkaline Phosphatase (34-104) U/L Total Protein (6.0-8.3) gm/dl Albumin (3.4-5.0) gm/dl Globulin (2.5-4.0) gm/dl Albumin/Globulin Ratio (0.9-2) Ur Random Creatinine mg/dl U Random Total Protein (0-11.9) mg/dl Protein/Creatinin Ratio (0-0.2) Urine Opiates Screen (Neg) Ur Methadone, Qual (Neg) Urine Fentanyl Screen (Neg) Urine Barbiturates (Neg) Ur Phencyclidine (PCP) (Neg) U Amphetamin/Meth Scrn (Neg) MDMA (Ecstasy) Screen (Neg) U Benzodiazepines Scrn (Neg) Ur Cocaine Metabolite (Neg) U Marijuana (THC) Screen (Neg) Treponema pallidum Ab (Negative) Hep Bs Antigen (Negative) HIV 1&2 Ab/P24 Ag 4thGn (Negative) Blood Type Antibody Screen PE: General: Alert, orientedx3, NAD CVS: S1S2 RRR Lungs; CTAB Abd: soft, NT, ND, BS+, fundus firm, below Umbilicus Incision/ Dressing: Clean, dry, intact Perineum intact, Lochia rubra minimal Ext; NT, no edema AP: 33 yo s/p C Section, pod# 2 VSS Afebrile doing well Continue routine postop care Encourage ambulation, PO intake, MOM for bowels All questions were answered D/C home tomorrow Results & Data Vital Signs (Past 12 Hours) Vital Signs Temp Pulse Resp BP Pulse Ox O2 Del Method 11/21/23 23:09 36.6 C 99 H 20 129/95 97 Room Air
[2023-11-22 09:20] LABS: Basophils # (auto) 0.06 K/uL (0.00-0.20); Basophils % (auto) 0.3 %; Eosinophils # (auto) 0.19 K/uL (0.00-0.50); Eosinophils % (auto) 1.1 %; Immature Granulocytes # (auto) 0.08 K/uL (0.01-0.20); Immature Granulocytes % (auto) 0.4 %; Lymphocytes # (auto) 2.22 K/uL (1.20-3.40); Lymphocytes % (auto) 12.3 %; Mean Platelet Volume 10.8 fL (9.4-12.4); Monocytes # (auto) 1.77 K/uL (0.11-0.59); Monocytes % (auto) 9.8 %; Neutrophils # (auto) 13.73 K/uL (1.40-6.50); Neutrophils % (auto) 76.1 %; Platelet Count 320 K/uL (130-400); RDW Coefficient of Variation 15.3 % (11.5-14.5); RDW Standard Deviation 52.1 fL (36.4-46.3); Red Blood Count 3.03 M/uL (4.20-5.40); White Blood Count 18.05 K/ul (4.8-10.8)
[2023-11-22 09:48] LABS: Mean Corpuscular Hgb Conc 33.3 g/dL (32.0-36.0)
[2023-11-22] MEDS: ACETAMINOPHEN 325 MG TAB PO PRN (10:01)
[2023-11-22] MEDS: IBUPROFEN 600 MG TAB PO PRN (10:02)
[2023-11-22 11:17] LABS: Amphetamine Urine, Confirm 8532 ng/mL (<250); Marijuana Quant, GCMS Urine 550 ng/mL (<5); Methamphetamine, Ur Confirm NEGATIVE ng/mL (<250)
[2023-11-22] MEDS: MAGNESIUM HYDROXIDE SUSP 30 ML UDC PO SCH (12:06)
[2023-11-22] MEDS ORDERED: bisacodyL 10 MG SUPP PR PRN (21:22)
[2023-11-23 06:41] LABS: Basophils # (auto) 0.03 K/uL (0.00-0.20); Basophils % (auto) 0.2 %; Eosinophils # (auto) 0.28 K/uL (0.00-0.50); Eosinophils % (auto) 2.1 %; Hematocrit (blood only) 26.4 % (37.0-47.0); Hemoglobin 8.7 g/dl (12.0-16.0); Immature Granulocytes # (auto) 0.06 K/uL (0.01-0.20); Immature Granulocytes % (auto) 0.4 %; Lymphocytes # (auto) 2.21 K/uL (1.20-3.40); Lymphocytes % (auto) 16.5 %; Mean Corpuscular Hemoglobin 31.1 pg (25.0-34.0); Mean Corpuscular Volume 94.3 fL (80.0-100.0); Mean Platelet Volume 10.1 fL (9.4-12.4); Monocytes # (auto) 1.19 K/uL (0.11-0.59); Monocytes % (auto) 8.9 %; Neutrophils # (auto) 9.65 K/uL (1.40-6.50); Neutrophils % (auto) 71.9 %; Platelet Count 326 K/uL (130-400); RDW Coefficient of Variation 14.8 % (11.5-14.5); RDW Standard Deviation 51.1 fL (36.4-46.3); White Blood Count 13.42 K/ul (4.8-10.8)
--- NOTE | 2023-11-23 08:14 | Obstetrical Progress Note ---
Date of Service November 23, 2023 Assessment & Plan Admission and Anticipated Discharge Date Admission Date: November 19, 2023 Subjective Patient is seen and examined. She feels well, no complaints. Pain is under control with oral meds. Ambulating without dizziness Voiding without difficulty Tolerating regular diet with out N&V Flatus + BM neg Bleeding is minimal No fever/ chills/ CP/ SOB/ N&V/ Leg pain Breast feeding without problems Vital Signs Temp Pulse Pulse Resp BP Pulse Ox O2 Del Method 11/23/23 04:45 36.5 C 91 H 20 106/73 Room Air 11/23/23 01:35 36.7 C 93 H 18 104/70 11/22/23 21:00 36.3 C L 99 H 18 114/77 Room Air 11/22/23 15:28 36.6 C 90 16 103/69 97 Room Air 11/22/23 09:30 36.7 C 109 H 22 121/86 Room Air Lab Results 11/19/23 11/19/23 11/19/23 Range/Units 17:21 18:29 18:59 WBC 19.26 H 18.54 H (4.8-10.8) K/ul RBC 4.08 L 4.06 L (4.20-5.40) M/uL Hgb 12.8 12.5 (12.0-16.0) g/dl Hct 37.0 37.8 (37.0-47.0) % MCV 90.7 93.1 (80.0-100.0) fL MCH 31.4 30.8 (25.0-34.0) pg MCHC 34.6 33.1 (32.0-36.0) g/dL RDW Std Deviation 47.2 H 48.9 H (36.4-46.3) fL RDW Coeff of Nicole 14.6 H 14.8 H (11.5-14.5) % Plt Count 383 377 (130-400) K/uL MPV 10.6 10.6 (9.4-12.4) fL Immature Gran % (Auto) 0.6 % Neut % (Auto) 79.4 % Lymph % (Auto) 11.4 % [place] % (Auto) 8.2 % Eos % (Auto) 0.1 % Baso % (Auto) 0.3 % Neut # (Auto) 15.30 H (1.40-6.50) K/uL Lymph # (Auto) 2.19 (1.20-3.40) K/uL [place] # (Auto) 1.57 H (0.11-0.59) K/uL Eos # (Auto) 0.02 (0.00-0.50) K/uL Baso # (Auto) 0.06 (0.00-0.20) K/uL Immature Gran # (Auto) 0.12 (0.01-0.20) K/uL Sodium 134 L (136-145) mmol/L Potassium 4.2 (3.5-5.1) mmol/L Chloride 107 (98-107) mmol/L Carbon Dioxide 19 L (21-32) mmol/L Anion Gap 8 (3-11) BUN 14 (6-23) mg/dl Creatinine 0.71 (0.6-1.2) mg/dl Est Cr Clr Drug Dosing Not Reportable Est GFR ( Amer) 130.6 ml/min Est GFR (Non-Af Amer) 112.7 ml/min BUN/Creatinine Ratio 19.7 (10-20) Glucose 134 H (70-99(Fasting)) mg/dl Calcium 9.4 (8.6-10.3) mg/dl Total Bilirubin 0.2 (0.2-1.0) mg/dl AST 15 (13-39) U/L ALT 7 (7-52) U/L Alkaline Phosphatase 188 H (34-104) U/L Total Protein 7.0 (6.0-8.3) gm/dl Albumin 3.3 L (3.4-5.0) gm/dl Globulin 3.7 (2.5-4.0) gm/dl Albumin/Globulin Ratio 0.9 (0.9-2) Ur Random Creatinine mg/dl U Random Total Protein (0-11.9) mg/dl Protein/Creatinin Ratio (0-0.2) Urine Opiates Screen (Neg) Ur Methadone, Qual (Neg) Urine Fentanyl Screen (Neg) Urine Barbiturates (Neg) Ur Phencyclidine (PCP) (Neg) U Amphetamines Confirm (<250) ng/mL U Amphetamin/Meth Scrn (Neg) U Methamphetamin Confrm (<250) ng/mL MDMA (Ecstasy) Screen (Neg) U Benzodiazepines Scrn (Neg) Ur Cocaine Metabolite (Neg) U Marijuana (THC) Screen (Neg) U Marijuana THC Carboxy (<5) ng/mL Drug Screen Comment Treponema pallidum Ab Negative (Negative) Hep Bs Antigen (Negative) HIV 1&2 Ab/P24 Ag 4thGn (Negative) Blood Type Cancelled A Positive Antibody Screen Cancelled NEGATIVE 11/19/23 11/20/23 11/20/23 Range/Units Unknown 18:59 19:13 WBC 23.76 H (4.8-10.8) K/ul RBC 4.03 L (4.20-5.40) M/uL Hgb 12.5 (12.0-16.0) g/dl Hct 36.9 L (37.0-47.0) % MCV 91.6 (80.0-100.0) fL MCH 31.0 (25.0-34.0) pg MCHC 33.9 (32.0-36.0) g/dL RDW Std Deviation 49.4 H (36.4-46.3) fL RDW Coeff of Nicole 14.9 H (11.5-14.5) % Plt Count 334 (130-400) K/uL MPV 10.6 (9.4-12.4) fL Immature Gran % (Auto) % Neut % (Auto) % Lymph % (Auto) % [place] % (Auto) % Eos % (Auto) % Baso % (Auto) % Neut # (Auto) (1.40-6.50) K/uL Lymph # (Auto) (1.20-3.40) K/uL [place] # (Auto) (0.11-0.59) K/uL Eos # (Auto) (0.00-0.50) K/uL Baso # (Auto) (0.00-0.20) K/uL Immature Gran # (Auto) (0.01-0.20) K/uL Sodium (136-145) mmol/L Potassium (3.5-5.1) mmol/L Chloride (98-107) mmol/L Carbon Dioxide (21-32) mmol/L Anion Gap (3-11) BUN (6-23) mg/dl Creatinine (0.6-1.2) mg/dl Est Cr Clr Drug Dosing Est GFR ( Amer) ml/min Est GFR (Non-Af Amer) ml/min BUN/Creatinine Ratio (10-20) Glucose (70-99(Fasting)) mg/dl Calcium (8.6-10.3) mg/dl Total Bilirubin (0.2-1.0) mg/dl AST (13-39) U/L ALT (7-52) U/L Alkaline Phosphatase (34-104) U/L Total Protein (6.0-8.3) gm/dl Albumin (3.4-5.0) gm/dl Globulin (2.5-4.0) gm/dl Albumin/Globulin Ratio (0.9-2) Ur Random Creatinine 146.2 mg/dl U Random Total Protein 22.2 H (0-11.9) mg/dl Protein/Creatinin Ratio 0.2 (0-0.2) Urine Opiates Screen Neg (Neg) Ur Methadone, Qual Neg (Neg) Urine Fentanyl Screen Neg (Neg) Urine Barbiturates Neg (Neg) Ur Phencyclidine (PCP) Neg (Neg) U Amphetamines Confirm 8532 H (<250) ng/mL U Amphetamin/Meth Scrn Pos H (Neg) U Methamphetamin Confrm NEGATIVE (<250) ng/mL MDMA (Ecstasy) Screen Neg (Neg) U Benzodiazepines Scrn Neg (Neg) Ur Cocaine Metabolite Neg (Neg) U Marijuana (THC) Screen Pos H (Neg) U Marijuana THC Carboxy 550 H (<5) ng/mL Drug Screen Comment SEE NOTE Treponema pallidum Ab (Negative) Hep Bs Antigen Negative (Negative) HIV 1&2 Ab/P24 Ag 4thGn Negative (Negative) Blood Type Antibody Screen 11/21/23 11/22/23 11/23/23 Range/Units 06:08 05:39 06:21 WBC 22.43 H 18.05 H 13.42 H (4.8-10.8) K/ul RBC 3.33 L 3.03 L 2.80 L (4.20-5.40) M/uL Hgb 10.3 L 9.3 L 8.7 L (12.0-16.0) g/dl Hct 30.6 L 27.9 L 26.4 L (37.0-47.0) % MCV 91.9 93.0 94.3 (80.0-100.0) fL MCH 30.9 31.0 31.1 (25.0-34.0) pg MCHC 33.7 33.3 33.0 (32.0-36.0) g/dL RDW Std Deviation 48.9 H 52.1 H 51.1 H (36.4-46.3) fL RDW Coeff of Nicole 14.7 H 15.3 H 14.8 H (11.5-14.5) % Plt Count 324 320 326 (130-400) K/uL MPV 10.8 10.8 10.1 (9.4-12.4) fL Immature Gran % (Auto) 0.8 0.4 0.4 % Neut % (Auto) 77.5 76.1 71.9 % Lymph % (Auto) 12.2 12.3 16.5 % [place] % (Auto) 8.7 9.8 8.9 % Eos % (Auto) 0.4 1.1 2.1 % Baso % (Auto) 0.4 0.3 0.2 % Neut # (Auto) 17.41 H 13.73 H 9.65 H (1.40-6.50) K/uL Lymph # (Auto) 2.73 2.22 2.21 (1.20-3.40) K/uL Nance # (Auto) 1.96 H 1.77 H 1.19 H (0.11-0.59) K/uL Eos # (Auto) 0.08 0.19 0.28 (0.00-0.50) K/uL Baso # (Auto) 0.08 0.06 0.03 (0.00-0.20) K/uL Immature Gran # (Auto) 0.17 0.08 0.06 (0.01-0.20) K/uL Sodium (136-145) mmol/L Potassium (3.5-5.1) mmol/L Chloride (98-107) mmol/L Carbon Dioxide (21-32) mmol/L Anion Gap (3-11) BUN (6-23) mg/dl Creatinine (0.6-1.2) mg/dl Est Cr Clr Drug Dosing Est GFR ( Amer) ml/min Est GFR (Non-Af Amer) ml/min BUN/Creatinine Ratio (10-20) Glucose (70-99(Fasting)) mg/dl Calcium (8.6-10.3) mg/dl Total Bilirubin (0.2-1.0) mg/dl AST (13-39) U/L ALT (7-52) U/L Alkaline Phosphatase (34-104) U/L Total Protein (6.0-8.3) gm/dl Albumin (3.4-5.0) gm/dl Globulin (2.5-4.0) gm/dl Albumin/Globulin Ratio (0.9-2) Ur Random Creatinine mg/dl U Random Total Protein (0-11.9) mg/dl Protein/Creatinin Ratio (0-0.2) Urine Opiates Screen (Neg) Ur Methadone, Qual (Neg) Urine Fentanyl Screen (Neg) Urine Barbiturates (Neg) Ur Phencyclidine (PCP) (Neg) U Amphetamines Confirm (<250) ng/mL U Amphetamin/Meth Scrn (Neg) U Methamphetamin Confrm (<250) ng/mL MDMA (Ecstasy) Screen (Neg) U Benzodiazepines Scrn (Neg) Ur Cocaine Metabolite (Neg) U Marijuana (THC) Screen (Neg) U Marijuana THC Carboxy (<5) ng/mL Drug Screen Comment Treponema pallidum Ab (Negative) Hep Bs Antigen (Negative) HIV 1&2 Ab/P24 Ag 4thGn (Negative) Blood Type Antibody Screen PE: General: Alert, orientedx3, NAD CVS: S1S2 RRR Lungs; CTAB Abd: soft, NT, ND, BS+, fundus firm, below Umbilicus Incision/CRIS dressing: Clean, dry, intact Perineum intact, Lochia rubra minimal Ext; NT, no edema AP: 33 yo s/p C Section, pod# 3 VSS Afebrile doing well Continue routine postop care Encourage ambulation, PO intake IV iron for anemia All questions were answered D/C home , f/u in office Results & Data Vital Signs (Past 12 Hours) Vital Signs Temp Pulse Resp BP O2 Del Method 11/23/23 04:45 36.5 C 91 H 20 106/73 Room Air 11/23/23 01:35 36.7 C 93 H 18 104/70 11/22/23 21:00 36.3 C L 99 H 18 114/77 Room Air
[2023-11-23 08:50] VITALS: TEMP 98.1
[2023-11-23] MEDS: IRON SUCROSE 200 MG in 0.9 % SODIUM CHLORIDE 100 ML IV ONE (11:34)
[2023-11-23 21:01] VITALS: BP 132/83; PULSE 103; RESP 16
== END 2023-11-23 22:19 | disposition home or self-care (01) | DRG 788 ==
LOC: OPB 16:30 → 4S1 16:31 → 4E2 11-21 00:21